=== PATIENT | female | born 1950 | race Caucasian/White ===

== ENCOUNTER → 2016-10-01 | Outpatient (CLI) | payer MEDICARE ==
[~2016-10-01] MED LIST: ASPCH81X PO; METF-384 PO
[2016-10-01 14:47] LABS: ALT/SGPT 15 U/L (12-78); AST/SGOT 14 U/L (15-37); BLOOD UREA NITROGEN 16 mg/dl (7-18); BUN/CREATININE RATIO 20.9 (10-20); CALCIUM 8.8 mg/dl (8.5-10.1); CARBON DIOXIDE 28 mmol/L (21-32); CHLORIDE 105 mmol/L (98-107); CREATININE 0.75 mg/dl (0.60-1.20); GLUCOSE 123 mg/dl (70-99); POTASSIUM 4.3 mmol/L (3.5-5.1); SODIUM 140 mmol/L (136-145)
[2016-10-01 14:58] LABS: ALB/GLOB RATIO 0.9 (0.9-2); ALKALINE PHOSPHATASE 81 U/L (45-117); CHOLESTEROL 229 mg/dl (0-200); CHOLESTEROL/HDL RATIO 3.4; HDL CHOLESTEROL 67 mg/dl; LDL CHOLESTEROL CALCULATED 143 mg/dl; TRIGLYCERIDES 93 mg/dl (0-150); VERY LOW DENSITY LIPOPROT CALC 19 mg/dl
[2016-10-01 15:01] LABS: ESTIMATED AVERAGE GLUCOSE 148 mg/dl; HA1C FLAG Normal (Normal)
--- NOTE | 2016-10-17 09:59 | CODING QUERY MEDICAL NECESSITY ---
CQSUPPORTING DIAGNOSIS NEEDED A supporting diagnosis is required for the test/procedure performed on this patient in order for us to be reimbursed by the patient's insurance. Please provide a supporting diagnosis for the following test/procedure listed below next to the test name along with your signature. *If there is no additional diagnosis for this patient that would support the following test/procedure please document that below next to the test/procedure. Test(s)/Procedure(s) that require a supporting diagnosis: DOS 10/01/16 GLYCATED HEMOGLOBIN TEST Provider Signature: Date: Thank you Leeann Henderson [facility] Information Management Once completed, please kindly fax back to [phone] For questions please call [phone]
== END | disposition home or self-care (01) ==
LOC: C.LABBC 10:10
PROVIDERS: ATTEND Internal Medicine
DX: E55.9 Vitamin D deficiency, unspecified (principal); E11.9 Type 2 diabetes mellitus without complications

== ENCOUNTER → 2017-04-09 | Outpatient (CLI) | payer MEDICARE ==
[2017-04-09 11:24] LABS: CHOLESTEROL/HDL RATIO 3.7
[2017-04-09 12:21] LABS: ESTIMATED AVERAGE GLUCOSE 154 mg/dl; HA1C FLAG Normal (Normal)
== END | disposition home or self-care (01) ==
LOC: C.LABBC 08:56
PROVIDERS: ATTEND Internal Medicine
DX: E11.9 Type 2 diabetes mellitus without complications (principal)

== ENCOUNTER → 2017-07-01 | Outpatient (CLI) | payer MEDICARE | END | disposition home or self-care (01) | LOC: C.LABBC 10:21 | PROVIDERS: ATTEND Internal Medicine | DX: E11.9 Type 2 diabetes mellitus without complications (principal) ==

== ENCOUNTER → 2017-10-10 | Outpatient (CLI) | payer MEDICARE ==
[2017-10-10 11:04] LABS: BASO % 0.4 %; BASO ABS # 0.03 K/uL (0-0.2); EOS % 4.6 %; EOS ABS # 0.35 K/uL (0-0.5); HEMATOCRIT 37.7 % (37-47); HEMOGLOBIN 12.4 g/dL (12.0-16.0); IG# 0.02 K/uL (0.00-0.02); LYMPH % 22.3 %; LYMPH ABS # 1.68 K/uL (1.2-3.4); MEAN CELL VOLUME 87.1 fL (80-100); MEAN CORPUSCULAR HEMOGLOBIN 28.6 pg (25-34); MEAN CORPUSCULAR HGB CONC 32.9 g/dl (32-36); MEAN PLATELET VOLUME 9.8 fL (7.4-10.4); MONO % 5.3 %; NEUT % 67.1 %; NEUT ABS # 5.07 K/uL (1.4-6.5); PLATELET COUNT 373 K/uL (130-400); RED CELL DISTRIBUTION WIDTH CV 13.1 % (11.5-14.5); RED CELL DISTRIBUTION WIDTH SD 42.4 fL (36.4-46.3); WHITE BLOOD COUNT 7.55 K/uL (4.8-10.8)
[2017-10-10 11:30] LABS: ALBUMIN 3.5 gm/dl (3.4-5.0); ALT/SGPT 10 U/L (12-78); AST/SGOT 14 U/L (15-37); BLOOD UREA NITROGEN 11 mg/dl (7-18); CALCIUM 8.9 mg/dl (8.5-10.1); CARBON DIOXIDE 27 mmol/L (21-32); CHOLESTEROL 221 mg/dl (0-200); GLUCOSE 129 mg/dl (70-99); POTASSIUM 3.9 mmol/L (3.5-5.1); SODIUM 135 mmol/L (136-145)
[2017-10-10 11:40] LABS: ALKALINE PHOSPHATASE 89 U/L (45-117); LDL CHOLESTEROL CALCULATED 138 mg/dl; TOTAL PROTEIN 7.3 gm/dl (6.4-8.2)
[2017-10-10 12:54] LABS: HEMOGLOBIN A1C 7.1 % (4.5-5.6)
== END | disposition home or self-care (01) ==
LOC: C.LABBC 08:55
PROVIDERS: ATTEND Internal Medicine
DX: E11.9 Type 2 diabetes mellitus without complications (principal); E78.5 Hyperlipidemia, unspecified; Z87.442 Personal history of urinary calculi; E55.9 Vitamin D deficiency, unspecified

== ENCOUNTER 2024-11-23 22:07 | Inpatient (IN) ==
[2024-11-23 22:37] LABS: Basophils # (auto) 0.08 K/uL (0.00-0.20); Basophils % (auto) 0.4 %; Eosinophils # (auto) 0.04 K/uL (0.00-0.50); Eosinophils % (auto) 0.2 %; Hematocrit (blood only) 36.5 % (37.0-47.0); Hemoglobin 12.2 g/dl (12.0-16.0); Immature Granulocytes # (auto) 0.09 K/uL (0.01-0.20); Immature Granulocytes % (auto) 0.4 %; Lymphocytes # (auto) 1.33 K/uL (1.20-3.40); Mean Corpuscular Hemoglobin 28.4 pg (25.0-34.0); Mean Corpuscular Hgb Conc 33.4 g/dL (32.0-36.0); Mean Corpuscular Volume 84.9 fL (80.0-100.0); Mean Platelet Volume 9.1 fL (9.4-12.4); Monocytes # (auto) 0.74 K/uL (0.11-0.59); Monocytes % (auto) 3.4 %; Neutrophils # (auto) 19.75 K/uL (1.40-6.50); Neutrophils % (auto) 89.6 %; Platelet Count 409 K/uL (130-400); RDW Coefficient of Variation 12.5 % (11.5-14.5); RDW Standard Deviation 38.4 fL (36.4-46.3); White Blood Count 22.03 K/ul (4.8-10.8)
[2024-11-23 22:54] LABS: Albumin Globulin Ratio 1.4 (0.9-2); Albumin Level 4.4 gm/dl (3.4-5.0); BUN Creatinine Ratio 19.4 (10-20); Bilirubin,Total 0.4 mg/dl (0.2-1.0); Calcium 9.4 mg/dl (8.6-10.3); Creatinine Clr Calc Pharmacy 41.5 ml/min; Globulin 3.2 gm/dl (2.5-4.0); Potassium 3.6 mmol/L (3.5-5.1); Total Protein 7.6 gm/dl (6.0-8.3)
[2024-11-23 23:27] LABS: Appearance Urine Cloudy (Clear); Bacteria Urine Automated 4+ (None Seen); Bilirubin Urine Negative (Negative); Blood Urine 1+ (Negative); Cast Urine Automated 0-2 /lpf (0-2); Color Urine Yellow; Epithelial Cell Urine Auto 0-2 /hpf (0-2); Glucose Urine UA 1+ (Negative); Ketones Urine 1+ (Negative); Leukocyte Esterase Urine 3+ (Negative); Nitrite Urine Negative (Negative); Protein Urine 1+ (Negative); RBC Urine Automated >20 /hpf (0-2); Specific Gravity Urine 1.012 (1.000-1.030); Urobilinogen Urine Negative (Negative); WBC Urine Automated >50 /hpf (0-5); pH Urine 6.5 (4.5-7.5)
[2024-11-23 23:50] LABS: Magnesium 1.4 mg/dl (1.7-2.4)
[2024-11-23 23:58] LABS: Troponin I High Sensitivity 7.9 pg/ml (0-14)
--- NOTE | 2024-11-24 00:12 | XRay Report ---
Exam(s): XR CXR 1 VIEW EXAM: XR Chest, 1 View CLINICAL HISTORY: Reason for exam: Sepsis. TECHNIQUE: Frontal view of the chest. COMPARISON: August 22, 2024 FINDINGS: Lungs: Unremarkable. No consolidation. Pleural space: Unremarkable. No pneumothorax. Heart: Unremarkable. No cardiomegaly. Mediastinum: Unremarkable. Normal mediastinal contour. Bones/joints: Mild scoliosis of the thoracic spine, similar to previous. No acute fracture. Upper abdomen: Unremarkable as visualized. No pneumoperitoneum under the diaphragm. IMPRESSION: No acute findings in the chest. Electronically signed by: Sammy Webb MD 11/24/24 00:12 AM
[2024-11-24] MEDS: ONDANSETRON INJ 2 MG/ML 2 ML VIAL ONE (00:22)
[2024-11-24] MEDS: SODIUM CHLORIDE 0.9% 1,000 ML IV ONE (00:22)
[2024-11-24] MEDS: SODIUM CHLORIDE 0.9% 500 ML IV ONE (00:23)
[2024-11-24] MEDS: cefTRIAXone SODIUM 1,000 MG/50 ML BAG IV STA (00:47)
--- NOTE | 2024-11-24 00:47 | History & Physical Report ---
Date of Service November 24, 2024 Assessment & Plan (1) Sepsis: (2) Pyelonephritis of right kidney: (3) Hypomagnesemia: (4) Nausea & vomiting: Plan Patient is a 74-year-old female with past medical history of kidney stones, type II DM, hyperlipidemia, parathyroid tumor. She presented due to right sided flank pain and associated nausea and vomiting that began today. Patient was found to have a positive UA along with meeting SIRS criteria due to white count of 22.3 and heart rate of 124. She is being admitted for IV antibiotics for sepsis and pyelonephritis. #Sepsis/pyelonephritis - Patient with right flank pain and UA appears infectious with 3+ LE, >50 WBC, 4+ bacteria. Renal function stable. + SIRS: WBC 22.03 with neutrophil predominance, tachycardic 124 - procalcitonin negative - Lactate 2.5; will finish fluid bolus and order 2 hour repeat - Sepsis fluid bolus for ideal body weight = 1.5L; given 1.5L NSS in ED - Continue fluid resuscitation with plasmalyte @ 125 ml/hr x2L - continue Rocephin - Previous cultures have grown E. coli sensitive to Rocephin (resistant to quinolones and ampicillin) - Pain control with IV Tylenol prn, morphine 2/4 Mg IV for breakthrough pain - follow urine and blood cultures - Trend CBC - AP CT ordered as nephrolithiasis remains in differential #Hypomagnesemia mag 1.4, K+ 3.6. Suspect 2/2 depletion with vomiting. - 2G IV magnesium ordered - Trend BMP and mag #Nausea and vomiting - 2/2 infection above - Zofran as needed - Clear liquid diet, advance as tolerated - Hold nonessential p.o. medications #T2DM - Most recent A1C 7.3%. - hold Metformin with n/v - loose SSI ordered VTE ppx: SCDs, low risk and defer chemical ppx until AP CT resulted (may require surgical management if nephrolithiasis) Dispo: PCU Admission and Anticipated Discharge Date Admission Date: 11/24/24 History of Present Illness Chief Complaint: flank pain Primary Care Provider: Becka Pierre PA-C Patient is a 74-year-old female with past medical history of kidney stones, type II DM, hyperlipidemia, parathyroid tumor. She presented due to right sided flank pain and associated nausea and vomiting that began yesterday. Patient was found to have a positive UA along with meeting SIRS criteria due to white count of 22.3 and heart rate of 124. She is being admitted for IV antibiotics for sepsis and pyelonephritis. Patient seen at bedside. She is tired and laying with her eyes closed. She stated that last evening she developed right flank pain that has been worsening since. She also developed nausea and vomiting this morning vomiting approximately 3 times, she denies any hematemesis. She stated the pain radiates from front to back however denies any radiation into her groin. She stated she does have a history of kidney stones, having multiple stones in the however has not had a stone since having her parathyroid removed. She denies any symptoms of cystitis, denies dysuria, hematuria, increase in urinary frequency, increased urinary urgency, difficulty urinating. She has been unable to eat or drink much this evening due to the vomiting with nausea. She does endorse chills this afternoon however improved. She stated she does not get frequent UTIs. She denies any chest pain or shortness of breath. She denies nicotine or alcohol use. She does not use oxygen at baseline. She did not get any of her home medications today due to feeling nauseous. She wishes to be DNR/DNI. Allergies Allergy/AdvReac Type Severity Reaction Status Date / Time cat dander Allergy Intermediate ITCHING Verified 10/16/24 09:24 Penicillins Allergy Intermediate RASH Verified 10/16/24 09:24 doxycycline AdvReac Intermediate vomiting, Verified 10/16/24 09:24 weakness empagliflozin AdvReac Verified 10/16/24 09:24 [From Jardiance] Januiva AdvReac Uncoded 10/16/24 09:24 Home Medications Medication Instructions Recorded Confirmed Type calcium 500 mg-vitamin D3 100 1 tab PO DAILY 02/05/23 11/24/24 History unit-vitamin K 40 mcg chewable tablet rosuvastatin 10 mg tablet 10 mg PO Q OTHER DAY #45 tabs 07/02/23 11/24/24 Rx albuterol sulfate 90 mcg/actuation 2 inha inhalation QID PRN 08/22/24 11/24/24 Rx aerosol inhaler shortness of breath or wheezing #1 inhaler sodium chloride 0.65 % nasal spray 2 spray intranasal QID PRN dry 03/28/25 05/06/25 Rx aerosol ([place] Saline) nasal passages #50 mL metformin 500 mg tablet,extended 1,000 mg PO BID 11/24/24 11/24/24 History release 24 hr Past Med/Surg History Problem List (Updated 11/24/24 @ 01:20 by Shivani Reynolds PA-C) Nausea & vomiting Hypomagnesemia Pyelonephritis of right kidney Sepsis Anterior epistaxis Staph skin infection Type 2 diabetes mellitus with microalbuminuria Osteoporosis Multinodular thyroid Anxiety, generalized (~10/16/24) Thyromegaly Tinnitus Acute dysfunction of both eustachian tubes Hyperlipidemia (Acute) Prolapsed bladder (Acute) Vitamin D deficiency (Acute) Medical History History of cataract History of kidney stones Surgical History History of lithotripsy History of parathyroid surgery History of throat surgery History of wisdom tooth extraction Family History Father Diabetes Glaucoma Prostate cancer Macular degeneration Aunt Colorectal cancer Sister Diabetes Gallbladder disease Other No family history of bleeding disorder Denies family history of Ovarian cancer Myocardial infarction Breast cancer Lung cancer Stroke Social History Smoking Status: Never smoker Tobacco Type: Cigarettes Second Hand Exposure: No; Do You Dip or Chew Tobacco: No; Hx Alcohol Use: Yes Alcohol type: hard liquor Alcohol Intake Frequency: Monthly or Less Hx Substance Use: No Preferred Language: Occitan Communication Ability: Effective Visual Impairment: Limited Hearing Ability: Normal Director [place] Required: No Beliefs That Will Affect Care: None marital status: / Current Living Situation: Alone Current Living Situation Comment: 1 dog current occupational status: retired How many Children do You have: 1 Feels Safe at Home: Yes Childhood Exposure to Second-Hand Smoke: Yes Diet: diabetic caffeine: Yes Dental Care, Regularly: Yes Physical Activity Frequency: Daily Physical Activity Frequency Comment: Tries to walk Seatbelt Use: always Sunscreen Use: Yes Assistive Devices: Glasses Review of Systems Review of Systems: See HPI Physical Exam Physical Exam: The patient is tired, alert and oriented 3, well developed and well nourished, normocephalic and atraumatic, in no acute distress. Non-toxic appearing. HEENT- EOMI, mucous membranes dry. Hearing grossly intact. Heart-normal S1 and S2. No murmurs, rubs or gallops. Lungs-clear bilaterally, no respiratory distress, no accessory muscle use. Abdomen-normal bowel sounds and soft. No ascites noted. Tender to palpation of right upper and lower quadrant. No CVA tenderness. Extremities- no clubbing, cyanosis, or edema. Rheumatologic-normal range of motion. Results & Data Results & Data Vital Signs (Past 12 Hours) Vital Signs Temp Pulse Pulse Resp BP BP Pulse Ox 11/24/24 00:03 36.9 C 11/23/24 23:52 124 H 23 96 11/23/24 23:48 120 H 32 H 176/96 H 95 11/23/24 23:45 121 H 32 H 96 11/23/24 23:44 188/100 H 11/23/24 23:30 121 H 39 H 96 11/23/24 23:21 125 H 21 11/23/24 23:00 115 H 20 96 11/23/24 22:42 112 H 29 H 90 11/23/24 22:40 109 H 11/23/24 22:10 36.6 C 113 H 18 183/98 H 100 O2 Del Method 11/24/24 00:03 11/23/24 23:52 11/23/24 23:48 Room Air 11/23/24 23:45 11/23/24 23:44 11/23/24 23:30 11/23/24 23:21 11/23/24 23:00 11/23/24 22:42 11/23/24 22:40 11/23/24 22:10 Room Air Laboratory Results reviewed CBC, CMP, magnesium, lactate, troponin, procalcitonin, UA Diagnostic Findings reviewed CXR Medications Administered ED1.5 mL NSS bolus, Rocephin 1G IV, Zofran ECG Additional Comments: sinus tachycardia with PACs Rate 125 QTc 441 Code Status & VTE Plan VTE Prophylaxis Plan VTE Prophylaxis will be ordered: Yes Supervising Physician Co-Signing Physician Notes I personally saw and examined the patient. I independently reviewed the labs, EKG, imaging, problem list, medication list, past medical history and family history. I verified all reeder points and agree with Shivani Reynolds PA-C with the following exceptions and/or additions: 74 year old female presents to the ER with sudden onset right flank and abdominal pain. No dysuria or measured fever. Pain feels like her previous stones although not had any for many years since parathyroid gland removed. O/E HS increased rate, regular rhythm, no murmurs, Chest CTAB, Abdo right sided pain without guarding or rebound tenderness, severe right CVA tenderness. A/P Sepsis/pyelonephritis - concerning history for stone given sudden onset, lack of fever, normal procalcitonin, history of stones feeling similar in the past, lack of urinary symptoms prior pain recommend CT A/P without contrast to assess for ureterolithiasis. No history of drug resistant organisms known. IV ceftriaxone, NPO until CT resulted, IV fluids (does not meet criteria for spesis fluid bolus) PG Care Time/CCT Total # of Minutes Spent Total Time Spent with Patient: Total time spent is greater than 50% in coordination of care (as documented) at patient's floor/unit and/or counseling patient: Coding Level of Care Code 35294 INT INP/OBS CARE 3/75MIN Diagnoses Sepsis A41.9 Pyelonephritis of right kidney N12 Hypomagnesemia E83.42 Nausea & vomiting R11.2
[2024-11-24] MEDS: ACETAMINOPHEN 1,000 MG/100 ML VIAL IV STA (01:40)
[2024-11-24] MEDS ORDERED: MELATONIN 3 MG TAB PO PRN (02:00)
[2024-11-24] MEDS ORDERED: ALBUTEROL HFA 8 GM INHALER INH PRN (02:00)
[2024-11-24] MEDS ORDERED: DOCUSATE SODIUM 100 MG CAP PO PRN (02:00)
[2024-11-24] MEDS ORDERED: SODIUM CHLORIDE 0.65% NA SOLN 45 ML (OCEAN) PRN (02:00)
[2024-11-24] MEDS ORDERED: MoRPHine SULFATE 2 MG/ML CARP IV PRN (02:00)
[2024-11-24] MEDS: ONDANSETRON INJ 2 MG/ML 2 ML VIAL IV STA (02:02)
[2024-11-24] MEDS: MAGNESIUM SULFATE / D5W 1 GM/100 ML BAG IV SCH (02:06)
[2024-11-24] MEDS ORDERED: GLUCAGON FOR INJ 1 MG VIAL SQ PRN (02:25)
[2024-11-24] MEDS ORDERED: GLUCOSE 10 TAB/TUBE PO PRN (02:25)
[2024-11-24] MEDS ORDERED: CARBOHYDRATES FOR HYPOGLYCEMIA PO PRN (02:25)
[2024-11-24] MEDS ORDERED: GLUCOSE 40% GEL 15 GM TUBE PO PRN (02:25)
[2024-11-24] MEDS ORDERED: DEXTROSE 50% 50 ML SYRINGE IV PRN (02:25)
[2024-11-24] MEDS: MoRPHine SULFATE 4 MG/ML 1 ML CARP\\VIAL IV PRN (03:40)
[2024-11-24] MEDS: PLASMA-LYTE A 1,000 ML IV SCH (03:41)
[2024-11-24] MEDS: ONDANSETRON INJ 2 MG/ML 2 ML VIAL IV PRN (03:43)
[2024-11-24 05:43] LABS: Hemoglobin 11.1 g/dl (12.0-16.0); Mean Corpuscular Hgb Conc 32.6 g/dL (32.0-36.0); Mean Corpuscular Volume 85.9 fL (80.0-100.0); Mean Platelet Volume 8.9 fL (9.4-12.4); Platelet Count 286 K/uL (130-400); RDW Coefficient of Variation 12.4 % (11.5-14.5); RDW Standard Deviation 39.1 fL (36.4-46.3); Red Blood Count 3.96 M/uL (4.20-5.40); White Blood Count 20.31 K/ul (4.8-10.8)
--- NOTE | 2024-11-24 05:56 | CT Scan Report ---
EXAM: CT abd pelvis wo con CLINICAL HISTORY: right flank pain ?stone TECHNIQUE: Contiguous axial images were obtained from the level of the diaphragm to the pubic symphysis without intravenous or oral contrast. Coronal and sagittal reconstructions were likewise performed and indicated to increase the sensitivity for detecting clinically relevant pathology. CT scan was performed according to ALARA (as low as reasonable achievable). COMPARISON: None FINDINGS: The visualized lung bases are clear. Evaluation of the abdominal and pelvic visceral organs is limited without intravenous contrast. The unenhanced liver, spleen, pancreas, and adrenal glands are grossly unremarkable. The gallbladder is present. Right Kidney: Enlarged in size measuring 11 x 7.7 cm. Evidence of 16 x 11 mm radiodense ( 1324 to 1707 HU) calculus noted at right pelviureteric junction with moderate hydronephrosis. Evidence of exophytic hypodense lesion with coarse calcifications noted at lower pole of right kidney measuring 64 x 63 x 53 mm ( CC x AP x TR) - could represent cyst. Severe perinephric fat stranding noted. There is evidence of fat stranding in the retroperitoneum along the anterior aspect of abdominal aorta and right common iliac artery. There is mild dilatation of the right ureter throughout its course with mild periureteric fat stranding, however, no evidence of radiodense calculus within. Left Kidney: Measures 10 x 5.8 cm. Mild perinephric fat stranding is seen. There is no hydronephrosis. No evidence of calcification. Left ureter is normal in caliber. No fluid collections are seen. Evidence of colonic diverticuli with no evidence of diverticulitis. No evidence of focal or diffuse bowel wall thickening or evidence of bowel obstruction is seen. The appendix is visualized in the right lower quadrant and appears within normal limits. The aorta is normal in caliber. The urinary bladder is normal in contour. Uterus is normal in size with evidence of myometrial calcification. Evidence of hypodense lesion measuring 30 x 23 mm in right ovary- likely cyst. Left ovary appears normal. 17.6 mm defect at umbilicus through which fat is seen herniating content. No aggressive appearing osseous lesions are identified. Degenerative changes noted in lumbosacral spine with spondylosis changes with curvature towards left side. IMPRESSION: Obstructive right pelviureteric junction calculus with moderate hydronephrosis and enlarged right kidney with severe perinephric fat stranding. Exophytic hypodense lesion with coarse calcifications at lower pole of right kidney - likely cyst - suggest ultrasound correlation Hypodense lesion in right ovary - likely cyst - suggest ultrasound correlation Evidence of umbilical hernia with omentum as herniating content. Spondylar degenerative changes in lumbosacral spine Electronically signed by Orlando Remy 11-24-2024 05:55 AM
[2024-11-24 05:59] LABS: Creatinine Clr Calc Pharmacy 40.4 ml/min; Magnesium 1.7 mg/dl (1.7-2.4); Potassium 3.6 mmol/L (3.5-5.1)
--- NOTE | 2024-11-24 06:01 | Communication Note ---
Date of Service: November 24, [address] resulted confirming right obstructed nephrolithiasis with moderate hydronephrosis. Will maintain NPO status and continue IVF. Urology consulted; anticipate surgical management given sepsis.
[2024-11-24 06:11] LABS: Basophils # (auto) 0.05 K/uL (0.00-0.20); Basophils % (auto) 0.2 %; Immature Granulocytes # (auto) 0.16 K/uL (0.01-0.20); Immature Granulocytes % (auto) 0.8 %; Lymphocytes # (auto) 0.36 K/uL (1.20-3.40); Lymphocytes % (auto) 1.8 %; Monocytes # (auto) 0.21 K/uL (0.11-0.59); Neutrophils # (auto) 19.53 K/uL (1.40-6.50); Neutrophils % (auto) 96.2 %; Ovalocytes 1+
[2024-11-24] MEDS: INSULIN ASPART PER UNIT CHARGE SC SCH (07:46)
--- NOTE | 2024-11-24 07:57 | Urology Consultation ---
Date of Consultation November 24, 2024 Assessment & Plan (1) Calculus of proximal right ureter: Recommend cystoscopy and right stent placement given obstructing stone and concern for infection Keep n.p.o. for procedure Discussed her large right UPJ stone, hydronephrosis, infection Also discussed her complex cystic structure h adjacent to the kidney She has a prior history of ESWL with a bleed and this calcified mass developed after that and is believed to be directly resulting from it rather than from a m alignancy Regardless, we will address this in the future and not today Discussed cystoscopy and right ureteral stent placement followed by outpatient follow-up for ureteroscopy and laser lithotripsy She has very understanding She is accompanied by her son today and she is in agreement with moving forward with the procedure Sophie Olmos began this consult and I completed with the evaluation and personal physical exam History of Present Illness Attending Physician: Saadia Smith MD History of Present Illness This is a 74-year-old female with history of nephrolithiasis who presented for evaluation of right-sided flank pain with associated nausea and vomiting. Urinalysis was suspicious for infection and she met SIRS criteria due to leukocytosis of 22.3 and tachycardia. She was admitted to the hospital medicine service for sepsis and pyelonephritis. Workup included CT abdomen pelvis which showed moderate right hydronephrosis secondary to an obstructing 16 x 11 mm calculus noted at the UPJ with perinephric stranding noted. There is also an exophytic hypodense lesion with calcifications of the lower pole of the right kidney. Urology is consulted for obstructing stone and concern for infection. Patient seen and examined at bedside. She is resting in bed, arouses to her name. She is comfortable at present. Reports right flank pain, nausea and vomiting prior to arrival. Symptoms are improved at present. Denies dysuria or hematuria. No fever or chills at present. She is NPO. She reports history of in the 90s. She has previously passed stone spontaneously as well as history of shockwave lithotripsy. She reports she was told by her previous urologist that her kidney was damaged by prior lithotripsy. Allergies Allergy/AdvReac Type Severity Reaction Status Date / Time cat dander Allergy Intermediate ITCHING Verified 11/24/24 10:25 Penicillins Allergy Intermediate RASH Verified 11/24/24 10:25 doxycycline AdvReac Intermediate vomiting, Verified 11/24/24 10:25 weakness sitagliptin [From Januvia] AdvReac Intermediate hair loss Verified 11/24/24 10:25 empagliflozin AdvReac anger Verified 11/24/24 10:25 [From Jardiance] Home Medications Medication Instructions Recorded Confirmed Type calcium 500 mg-vitamin D3 100 1 tab PO DAILY 02/05/23 11/24/24 History unit-vitamin K 40 mcg chewable tablet rosuvastatin 10 mg tablet 10 mg PO Q OTHER DAY #45 tabs 07/02/23 11/24/24 Rx albuterol sulfate 90 mcg/actuation 2 inha inhalation QID PRN 08/22/24 11/24/24 Rx aerosol inhaler shortness of breath or wheezing #1 inhaler sodium chloride 0.65 % nasal spray 2 spray intranasal QID PRN dry 10/16/24 11/24/24 Rx aerosol ([place] Saline) nasal passages #50 mL metformin 500 mg tablet,extended 1,000 mg PO BID 11/24/24 11/24/24 History release 24 hr Patient History Medical History History of cataract History of kidney stones Surgical History History of lithotripsy History of parathyroid surgery History of throat surgery History of wisdom tooth extraction Family History Father Diabetes Glaucoma Prostate cancer Macular degeneration Aunt Colorectal cancer Sister Diabetes Gallbladder disease Other No family history of bleeding disorder Denies family history of Ovarian cancer Myocardial infarction Breast cancer Lung cancer Stroke Social History Smoking Status: Never smoker Tobacco Type: Cigarettes Second Hand Exposure: No; Do You Dip or Chew Tobacco: No; Hx Alcohol Use: Yes Alcohol type: hard liquor Alcohol Intake Frequency: Monthly or Less Hx Substance Use: No Preferred Language: Nauruan Communication Ability: Effective Visual Impairment: Limited Hearing Ability: Normal Night Custodian Required: No Beliefs That Will Affect Care: None marital status: / Current Living Situation: Alone Current Living Situation Comment: 1 dog current occupational status: retired How many Children do You have: 1 Feels Safe at Home: Yes Childhood Exposure to Second-Hand Smoke: Yes Diet: diabetic caffeine: Yes Dental Care, Regularly: Yes Physical Activity Frequency: Daily Physical Activity Frequency Comment: Tries to walk Seatbelt Use: always Sunscreen Use: Yes Assistive Devices: Glasses Physical Exam Constitutional: well developed and well nourished Respiratory: no respiratory distress Cardiovascular: Extremities: no pedal edema Gastrointestinal (Abdomen): Inspection/Auscultation: abdomen normal to inspection Results & Data Vital Signs (Past 12 Hours) Vital Signs Temp Pulse Pulse Resp BP BP Pulse Ox 11/24/24 04:00 107 H 11/24/24 03:05 36.9 C 106 H 20 146/76 H 94 11/24/24 03:00 94 11/24/24 01:52 111 H 30 H 173/89 H 92 11/24/24 01:48 113 H 30 H 173/89 H 94 11/24/24 01:25 115 H 30 H 164/99 H 94 11/24/24 00:03 36.9 C 11/23/24 23:52 124 H 23 96 11/23/24 23:48 120 H 32 H 176/96 H 95 11/23/24 23:45 121 H 32 H 96 11/23/24 23:44 188/100 H 11/23/24 23:30 121 H 39 H 96 11/23/24 23:21 125 H 21 11/23/24 23:00 115 H 20 96 11/23/24 22:42 112 H 29 H 90 11/23/24 22:40 109 H 11/23/24 22:10 36.6 C 113 H 18 183/98 H 100 O2 Del Method 11/24/24 04:00 11/24/24 03:05 Room Air 11/24/24 03:00 Room Air 11/24/24 01:52 Room Air 11/24/24 01:48 Room Air 11/24/24 01:25 Room Air 11/24/24 00:03 11/23/24 23:52 11/23/24 23:48 Room Air 11/23/24 23:45 11/23/24 23:44 11/23/24 23:30 11/23/24 23:21 11/23/24 23:00 11/23/24 22:42 11/23/24 22:40 11/23/24 22:10 Room Air PG Care Time/CCT Total # of Minutes Spent Total Time Spent with Patient: Total time spent is greater than 50% in coordination of care (as documented) at patient's floor/unit and/or counseling patient: Coding Level of Care Code 39124 IN/OBS CONSULT LVL 3,45M Diagnoses Calculus of proximal right ureter N20.1
[2024-11-24] MEDS ORDERED: metFORMIN HCL ER 500 MG TABCR PO SCH (09:00)
[2024-11-24] MEDS ORDERED: LIDOCAINE 2% 2 ML VIAL/AMP(20MG/ML) INFIL ONE (09:30)
[2024-11-24] MEDS ORDERED: PROPOFOL IV EMULSION 10 MG/ML 20 ML VIAL IV ONE (09:30)
[2024-11-24] MEDS ORDERED: fentaNYL citrate PF 100 MCG/2 ML VIAL ONE (09:31)
[2024-11-24] MEDS ORDERED: ONDANSETRON INJ 2 MG/ML 2 ML VIAL ONE (09:32)
[2024-11-24] MEDS: LACTATED RINGER'S 1,000 ML IV SCH (10:24)
--- NOTE | 2024-11-24 10:30 | Anesthesiology Consultation ---
Date of Service November 24, 2024 Assessment & Plan Chart Review Chart Review: Acceptable Risk for Surgery Consults Requested none History Surgery Operation Date: 11/24/24 07:00 Proposed Procedures p Cystoscopy Right Stent Placement - Piyush Bo MD Height/Weight Height: 5 ft 2 in Weight: 66.4 kg Allergies Allergy/AdvReac Type Severity Reaction Status Date / Time cat dander Allergy Intermediate ITCHING Verified 11/24/24 10:25 Penicillins Allergy Intermediate RASH Verified 11/24/24 10:25 doxycycline AdvReac Intermediate vomiting, Verified 11/24/24 10:25 weakness sitagliptin [From Januvia] AdvReac Intermediate hair loss Verified 11/24/24 10:25 empagliflozin AdvReac anger Verified 11/24/24 10:25 [From Jardiance] Medications Home Medications Medication Instructions Recorded Confirmed Last Taken calcium 500 mg-vitamin D3 100 1 tab PO DAILY 02/05/23 11/24/24 Unknown unit-vitamin K 40 mcg chewable tablet rosuvastatin 10 mg tablet 10 mg PO Q OTHER DAY #45 tabs 07/02/23 11/24/24 Unknown albuterol sulfate 90 mcg/actuation 2 inha inhalation QID PRN 08/22/24 11/24/24 Unknown aerosol inhaler shortness of breath or wheezing #1 inhaler sodium chloride 0.65 % nasal spray 2 spray intranasal QID PRN dry 10/16/24 11/24/24 Unknown aerosol ([place] Saline) nasal passages #50 mL metformin 500 mg tablet,extended 1,000 mg PO BID 11/24/24 11/24/24 Unknown release 24 hr Active Medications Generic Name Dose Route Start Last Admin Trade Name Fifi PRN Reason Stop Dose Admin Parenteral Electrolytes 1,000 mls @ 125 mls/hr 11/24/24 01:15 11/24/24 10:08 Plasma-Lyte A Ph 7.4 IV 11/24/24 17:14 0 mls/hr .Q8H [facility] Infusion Lactated Ringer's 1,000 mls @ 15 mls/hr 11/24/24 10:30 11/24/24 10:24 Lr IV 11/27/24 10:29 15 mls/hr .Q24H [facility] Administration Insulin Aspart 0 units 11/24/24 07:30 11/24/24 07:46 Insulin Aspart Per Unit Charge SC 12/24/24 07:29 3 units ACHS [facility] Administration Morphine Sulfate 4 mg 11/24/24 02:00 11/24/24 03:40 Morphine Sulfate 4 Mg/Ml 1 Ml Carp\Vial IV 12/08/24 01:59 4 mg Q6H PRN Administration Severe Pain (Scale 7, 8, 9,10) Ondansetron HCl 4 mg 11/24/24 02:00 11/24/24 03:43 Ondansetron Inj 2 Mg/Ml 2 Ml Vial IV 12/24/24 01:59 4 mg Q6H PRN Administration Nausea And Vomiting NPO Date Last Intake of Fluids: 11/23/24 Time Last Intake of Fluids: 23:59 Date Last Intake of Solids: 11/23/24 Time Last Intake of Solids: 16:00 Past Medical History Medical History History of cataract History of kidney stones Past Family History Family History Father Diabetes Glaucoma Prostate cancer Macular degeneration Aunt Colorectal cancer Sister Diabetes Gallbladder disease Other No family history of bleeding disorder Denies family history of Ovarian cancer Myocardial infarction Breast cancer Lung cancer Stroke Past Surgical History Surgical History History of lithotripsy History of parathyroid surgery History of throat surgery History of wisdom tooth extraction Social History Smoking Status: Never smoker Do You Dip or Chew Tobacco: No Hx Alcohol Use: Yes Alcohol type: hard liquor Hx Substance Use: No Physical Exam Vital Signs Last Vital Signs Temp 36.5 C 11/24/24 10:20 Pulse 96 H 11/24/24 10:20 Resp 20 11/24/24 10:20 BP 114/62 11/24/24 10:20 Pulse Ox 93 11/24/24 10:20 O2 Del Method Room Air 11/24/24 10:20 Testing Laboratory Results 11/24/24 05:25 11/24/24 05: Urine Color Yellow 11/23/24 22:21 Urine Appearance Cloudy (Clear) A 11/23/24 22:21 Urine pH 6.5 (4.5-7.5) 11/23/24 22:21 Ur Specific [place] 1.012 (1.000-1.030) 11/23/24 22:21 Urine Protein 1+ (Negative) H 11/23/24 22:21 Urine Glucose (UA) 1+ (Negative) H 11/23/24 22:21 Urine Ketones 1+ (Negative) H 11/23/24 22:21 Urine Nitrite Negative (Negative) 11/23/24 22:21 Ur Leukocyte Esterase 3+ (Negative) H 11/23/24 22:21 Urine WBC (Auto) >50 /hpf (0-5) H 11/23/24 22:21 Urine RBC (Auto) >20 /hpf (0-2) H 11/23/24 22:21 U Hyaline Cast (Auto) 0-2 /lpf (0-2) 11/23/24 22:21 U Epithel Cells (Auto) 0-2 /hpf (0-2) 11/23/24 22:21 Urine Bacteria (Auto) 4+ (None Seen) H 11/23/24 22:21 11/24/24 11/24/24 10:20 07:41 POC Glucose 210 H 263 H
[2024-11-24] MEDS ORDERED: ATROPINE SULFATE 0.1 MG/ML 10ML SYR IV PRN (10:32)
[2024-11-24] MEDS ORDERED: PROMETHAZINE HCL 6.25 MG in SODIUM CHLORIDE 0.9% 50 ML IV PRN (10:32)
[2024-11-24] MEDS ORDERED: ePHEDrine sulfate 50 MG/ML AMP IV PRN (10:32)
[2024-11-24] MEDS ORDERED: ONDANSETRON INJ 2 MG/ML 2 ML VIAL IV PRN (10:32)
[2024-11-24] MEDS ORDERED: HYDROmorphone INJ 2 MG/ML SYR/VIAL IV PRN (10:32)
[2024-11-24] MEDS ORDERED: fentaNYL citrate PF 100 MCG/2 ML VIAL IV PRN (10:32)
--- NOTE | 2024-11-24 11:26 | Operative Report ---
[facility] Post Operative Report Pre & Post Diagnosis Operation Date: 11/24/24 07:00 Pre-Op Diagnosis: Pyelonephritis, Calculus of proximal right ureter Post-Op Diagnosis: Pyelonephritis, Calculus of proximal right ureter I identified the patient and participated in the time-out.: Yes Procedure Operation Date: 11/24/24 07:00 Actual Procedures p Cystoscopy Right Stent Placement(Right) - Piysuh Bo MD Surgeon Piyush Bo MD Team Psychologist none Estimated Blood Loss 0 Findings Consistent with Post-Op Diagnosis Specimens none Description of Procedure The patient was identified in the preoperative holding area, appropriate informed consents were reviewed and completed and the patient was transferred to the operative suite. Upon arrival, appropriate antibiotics and anesthesia were administered and the patient was placed in dorsal lithotomy position and prepped and draped in sterile fashion. Before beginning the case I performed visual inspection she has a very notable vaginal prolapse with predominantly anterior and apical prolapse but also some posterior component. I reduced the prolapse and packed her vagina with Ray- Mary's to allow easy access to the urethra. Full inspection of the bladder was then conducted. She was filled with purulent urine which was irrigated free. I was then able to identify the ureteral orifices in orthotopic position and I was able to intubate the right UO with a sensor wire which advanced the kidney without difficulty. There is a notable fluoroscopic density at the level of the UPJ consistent with the stone seen on preoperative imaging. The wire was able to advance beyond it. I then initially placed a 6 [place] by 24 cm double-J stent. There was good curl above the stone on initial placement once I removed the vaginal packing the loop slipped below the stone. In turn I returned to the bladder and grasped the distal aspect of the stent and exchanged it for 6 [place] by 22-32 cm stent. Curl in the second stent was much better and I felt confident was located in the area that was decompressing the kidney. There was Curl in the bladder as well. I then decompressed the bladder and concluded the case. There were no complications. She was reversed of anesthesia and taken to the recovery room in stable condition. I attest to the content of the Intraoperative Record and any orders documented therein. Any exceptions are noted below.
--- NOTE | 2024-11-24 11:58 | Anesthesiology Progress Note ---
Date of Service November 24, 2024 Anesthesia Post Procedure Vital Signs Vital Signs: Temp Pulse Pulse Resp BP BP Pulse Ox 11/24/24 11:45 36.5 C 88 20 100/54 L 95 11/24/24 11:35 87 17 107/60 100 11/24/24 11:26 37.2 C 85 13 89/58 L 99 11/24/24 10:20 36.5 C 96 H 20 114/62 93 11/24/24 08:00 102 H 11/24/24 08:00 36.7 C 114 H 18 138/77 98 11/24/24 04:00 107 H 11/24/24 03:05 36.9 C 106 H 20 146/76 H 94 11/24/24 03:00 94 11/24/24 01:52 111 H 30 H 173/89 H 92 11/24/24 01:48 113 H 30 H 173/89 H 94 11/24/24 01:25 115 H 30 H 164/99 H 94 11/24/24 00:03 36.9 C 11/23/24 23:52 124 H 23 96 11/23/24 23:48 120 H 32 H 176/96 H 95 11/23/24 23:45 121 H 32 H 96 11/23/24 23:44 188/100 H 11/23/24 23:30 121 H 39 H 96 11/23/24 23:21 125 H 21 11/23/24 23:00 115 H 20 96 11/23/24 22:42 112 H 29 H 90 11/23/24 22:40 109 H 11/23/24 22:10 36.6 C 113 H 18 183/98 H 100 O2 Del Method O2 Flow Rate 11/24/24 11:45 Room Air 11/24/24 11:35 Oxymask 4 11/24/24 11:26 Oxymask 4 11/24/24 10:20 Room Air 11/24/24 08:00 11/24/24 08:00 Room Air 11/24/24 04:00 11/24/24 03:05 Room Air 11/24/24 03:00 Room Air 11/24/24 01:52 Room Air 11/24/24 01:48 Room Air 11/24/24 01:25 Room Air 11/24/24 00:03 11/23/24 23:52 11/23/24 23:48 Room Air 11/23/24 23:45 11/23/24 23:44 11/23/24 23:30 11/23/24 23:21 11/23/24 23:00 11/23/24 22:42 11/23/24 22:40 11/23/24 22:10 Room Air Pain Intensity Right Flank: Pain Intensity: 9 Transfer of Care Handoff Completed per policy Notes Mental Status: alert / awake / arousable and participated in evaluation Patient Amnestic to Procedure: Yes Nausea / Vomiting: adequately controlled Pain: adequately controlled Airway Patency, RR, SpO2: stable & adequate BP & HR: stable & adequate Hydration State: stable & adequate Anesthetic Complications: no major complications apparent
--- NOTE | 2024-11-24 12:08 | Fluoroscopy Report ---
FL KUB CLINICAL HISTORY: Stent COMPARISON STUDY: None FLUOROSCOPY TIME: 17 seconds FLUOROSCOPY IMAGES: 6 EXPOSURE DOSE: 4 mGy FINDINGS: Fluoroscopy was provided for urologic procedure. IMPRESSION: Intraoperative fluoroscopy. ACT 112: Negative or not required by law. Electronically signed by: Juwan Fernando M.D. 11/24/2024 12:06 PM
[2024-11-24 12:18] LABS: A calco-baum cmplx NotReported Not Detected (NotDetected); Bact fragilis Not Reported Not Detected (NotDetected); Blood Culture Id Panel See PCR Comment (NotDetected); C auris Not Reported Not Detected (NotDetected); CTX-M Resistant Gene Not Detected (NotDetected); Calbicans Not Reported Not Detected (NotDetected); Candida glabrata Not Reported Not Detected (NotDetected); Candida krusei Not Reported Not Detected (NotDetected); Cneoformans/gatti Not Reported Not Detected (NotDetected); Cparapsilosis Not Reported Not Detected (NotDetected); Ctropicalis Not Reported Not Detected (NotDetected); E cloacae compx Not Reported Not Detected (NotDetected); Efaecalis Not Reported Not Detected (NotDetected); Efaecium Not Reported Not Detected (NotDetected); Enterobacterales Not Reported DETECTED (NotDetected); Escherichia coli Not Reported DETECTED (NotDetected); H influenzae Not Reported Not Detected (NotDetected); IMP Resistant Gene Not Detected (NotDetected); K aerogenes Not Reported Not Detected (NotDetected); KPC Resistant Gene Not Detected (NotDetected); Koxytoca Not Reported Not Detected (NotDetected); Kpneumoniae grp Not Reported Not Detected (NotDetected); Lmonocyt Not Reported Not Detected (NotDetected); N meningitidis Not Reported Not Detected (NotDetected); NDM Resistant Gene Not Detected (NotDetected); OXA 48 Like Resistant Gene Not Detected (NotDetected); P aeruginosa Not Reported Not Detected (NotDetected); Proteus spp Not Reported Not Detected (NotDetected); Salmonella spp Not Reported Not Detected (NotDetected); Staph lugdunensis Not Reported Not Detected (NotDetected); Staph spp. Not Reported Not Detected (NotDetected); Staphaureus Not Reported Not Detected (NotDetected); Staphepi Not Reported Not Detected (NotDetected); Stenmaltophilia Not Reported Not Detected (NotDetected); Strep agal(GrpB) Not Reported Not Detected (NotDetected); Strep pneum Not Reported Not Detected (NotDetected); Strep pyog (GrpA) Not Reported Not Detected (NotDetected); Strep spp Not Reported Not Detected (NotDetected); VIM Resistant Gene Not Detected (NotDetected); mcr-1 Colistin Resistant Gene Not Detected (NotDetected)
[2024-11-24 12:52] LABS: Enterobacterales DETECTED (NotDetected)
[2024-11-24] MEDS: CEFEPIME 2000MG 2,000 MG/20 ML SYR IV SCH (18:13)
[2024-11-24] MEDS: ACETAMINOPHEN 1,000 MG/100 ML VIAL IV PRN (22:30)
[2024-11-25] MEDS ORDERED: cefTRIAXone SODIUM 1,000 MG/50 ML BAG IV SCH
[2024-11-25 06:47] LABS: Hematocrit (blood only) 32.1 % (37.0-47.0); Hemoglobin 10.6 g/dl (12.0-16.0); Mean Corpuscular Hemoglobin 28.6 pg (25.0-34.0); Mean Corpuscular Volume 86.8 fL (80.0-100.0); Mean Platelet Volume 9.5 fL (9.4-12.4); Platelet Count 230 K/uL (130-400); RDW Coefficient of Variation 12.9 % (11.5-14.5); RDW Standard Deviation 40.8 fL (36.4-46.3); White Blood Count 15.17 K/ul (4.8-10.8)
[2024-11-25 07:15] LABS: Basophils # (auto) 0.06 K/uL (0.00-0.20); Basophils % (auto) 0.4 %; Eosinophils # (auto) 0.29 K/uL (0.00-0.50); Eosinophils % (auto) 1.9 %; Immature Granulocytes # (auto) 0.06 K/uL (0.01-0.20); Immature Granulocytes % (auto) 0.4 %; Lymphocytes # (auto) 1.06 K/uL (1.20-3.40); Monocytes # (auto) 0.65 K/uL (0.11-0.59); Monocytes % (auto) 4.3 %; Neutrophils # (auto) 13.05 K/uL (1.40-6.50)
[2024-11-25 07:23] LABS: BUN Creatinine Ratio 21.9 (10-20); Calcium 8.1 mg/dl (8.6-10.3); Creatinine Clr Calc Pharmacy 40.2 ml/min; Magnesium 2.1 mg/dl (1.7-2.4); Potassium 3.8 mmol/L (3.5-5.1)
--- NOTE | 2024-11-25 08:34 | Infectious Disease Consult ---
Date of Consultation November 25, 2024 Assessment & Plan (1) Calculus of proximal right ureter: (2) Pyelonephritis of right kidney: (3) E coli bacteremia: Plan Problems: #Obstructing R pelviureteric junction calculus with hydronephrosis and pyelonephritis #E coli bacteremia #Penicillin allergy (rash) Micro: 11/24 00:07 BCx: E coli in 2/2 bottles 11/23 23:59 BCx: E coli in 2/2 bottles 11/23 UCx: pending Abx: Ceftriaxone 1 g 11/23, 2 g 11/25 - Cefepime 11/24 - 11/25 74 yo F with history of nephrolithiasis, T2DM, HLD, parathyroid tumor who presented on 11/23 with R flank pain, N/V, found on CT to have an obstructive R pelviureteric junction calculus with moderate hydronephrosis and enlarged R kidney with severe perinephric fat stranding, s/p R ureteral stent placement 11/24. Complicated by E coli bacteremia in 4/4 bottles. On presentation, she was afebrile, HR 113. Labs showed WBC 22.03, lactate 2.5, UA with >50 WBCs. Developed fever to 38.2 on 11/24 PM. Leukocytosis has downtrended to 15.17. She will follow-up with urology as outpatient for definitive stone treatment. Recommendations: -Follow-up E coli sensitivities -Stopped cefepime, started ceftriaxone 2 g IV q24h -Anticipate transitioning to PO antibiotics on discharge Will continue to follow. Consultation Information This patient recommendation is based on a telemedicine consult request which was completed asynchronously through chart review and information provided by the primary physician. The patient was not seen or examined today. The evaluation is consultative in nature and all patient care and treatment decisions can either be accepted or rejected by the patient's primary hospital-based treating physician using their own independent medical judgment for their patient. Retail Operations Specialist contact information: Please call [facility] . (Phone Number For Physician Use Only) Time Spent Reviewing Chart: 31+ minutes History of Present Illness Reason for Consultation: Gram negative bacteremia Attending Physician: Saadia Smith MD History of Present Illness 74 yo F with history of nephrolithiasis, T2DM, HLD, parathyroid tumor who presented on 11/23 with R flank pain, N/V. Denied dysuria, hematuria, urinary frequency or urgency. On presentation, she was afebrile, HR 113. Labs showed WBC 22.03, lactate 2.5, UA with >50 WBCs. CXR with no acute findings. CT AP without contrast showed obstructive R pelviureteric junction calculus with moderate hydronephrosis and enlarged R kidney with severe perinephric fat stranding. Pt was started on ceftriaxone. Urology consulted and took the pt to the OR on 11/24 for R ureteral stent placement. Per operative note, bladder was filled with purulent urine. She will follow-up with urology as outpatient for definitive stone treatment. Blood cultures growing E coli in / bottles. Febrile to 38.2 last night. Allergies Allergy/AdvReac Type Severity Reaction Status Date / Time cat dander Allergy Intermediate ITCHING Verified 11/24/24 10:25 Penicillins Allergy Intermediate RASH Verified 11/24/24 10:25 doxycycline AdvReac Intermediate vomiting, Verified 11/24/24 10:25 weakness sitagliptin [From Januvia] AdvReac Intermediate hair loss Verified 11/24/24 10:25 empagliflozin AdvReac anger Verified 11/24/24 10:25 [From Jardiance] Home Medications Medication Instructions Recorded Confirmed Type calcium 500 mg-vitamin D3 100 1 tab PO DAILY 02/05/23 11/24/24 History unit-vitamin K 40 mcg chewable tablet rosuvastatin 10 mg tablet 10 mg PO Q OTHER DAY #45 tabs 07/02/23 11/24/24 Rx albuterol sulfate 90 mcg/actuation 2 inha inhalation QID PRN 08/22/24 11/24/24 Rx aerosol inhaler shortness of breath or wheezing #1 inhaler sodium chloride 0.65 % nasal spray 2 spray intranasal QID PRN dry 10/16/24 11/24/24 Rx aerosol ([place] Saline) nasal passages #50 mL metformin 500 mg tablet,extended 1,000 mg PO BID 11/24/24 11/24/24 History release 24 hr Patient History Medical History History of cataract History of kidney stones Surgical History History of lithotripsy History of parathyroid surgery History of throat surgery History of wisdom tooth extraction Family History Father Diabetes Glaucoma Prostate cancer Macular degeneration Aunt Colorectal cancer Sister Diabetes Gallbladder disease Other No family history of bleeding disorder Denies family history of Ovarian cancer Myocardial infarction Breast cancer Lung cancer Stroke Social History Smoking Status: Never smoker Tobacco Type: Cigarettes Second Hand Exposure: No; Do You Dip or Chew Tobacco: No; Hx Alcohol Use: Yes Alcohol type: hard liquor Alcohol Intake Frequency: Monthly or Less Hx Substance Use: No Preferred Language: Serbian Communication Ability: Effective Visual Impairment: Limited Hearing Ability: Normal Digital Commentator Required: No Beliefs That Will Affect Care: None marital status: / Current Living Situation: Alone Current Living Situation Comment: 1 dog current occupational status: retired How many Children do You have: 1 Feels Safe at Home: Yes Childhood Exposure to Second-Hand Smoke: Yes Diet: diabetic caffeine: Yes Dental Care, Regularly: Yes Physical Activity Frequency: Daily Physical Activity Frequency Comment: Tries to walk Seatbelt Use: always Sunscreen Use: Yes Assistive Devices: None Results & Data Vital Signs (Past 12 Hours) Vital Signs Temp Pulse Pulse Resp BP Pulse Ox O2 Del Method 11/25/24 07:56 36.6 C 109 H 18 102/68 93 Room Air 11/25/24 04:58 86 109/63 11/25/24 02:21 36.7 C 85 16 97/64 L 96 Room Air 11/24/24 23:00 99 H 11/24/24 22:46 38.2 C H 102 H 17 106/64 92 Room Air Laboratory Results Short CBC 11/25/24 Range/Units 05:26 WBC 15.17 H (4.8-10.8) K/ul Hgb 10.6 L (12.0-16.0) g/dl Hct 32.1 L (37.0-47.0) % Plt Count 230 (130-400) K/uL BMP 11/25/24 05:26 Sodium 134 L Potassium 3.8 Chloride 102 Carbon Dioxide 25 BUN 23 Creatinine 1.05 Glucose 138 H Calcium 8.1 L Diagnostic Findings Chest X-Ray 11/23/24 23:19 Exam(s): XR CXR 1 VIEW EXAM: XR Chest, 1 View CLINICAL HISTORY: Reason for exam: Sepsis. TECHNIQUE: Frontal view of the chest. COMPARISON: August 22, 2024 FINDINGS: Lungs: Unremarkable. No consolidation. Pleural space: Unremarkable. No pneumothorax. Heart: Unremarkable. No cardiomegaly. Mediastinum: Unremarkable. Normal mediastinal contour. Bones/joints: Mild scoliosis of the thoracic spine, similar to previous. No acute fracture. Upper abdomen: Unremarkable as visualized. No pneumoperitoneum under the diaphragm. IMPRESSION: No acute findings in the chest. Electronically signed by: Sammy Webb MD 11/24/24 00:12 AM Abdomen/Pelvis CT 11/24/24 01:44 EXAM: CT abd pelvis wo con CLINICAL HISTORY: right flank pain ?stone TECHNIQUE: Contiguous axial images were obtained from the level of the diaphragm to the pubic symphysis without intravenous or oral contrast. Coronal and sagittal reconstructions were likewise performed and indicated to increase the sensitivity for detecting clinically relevant pathology. CT scan was performed according to ALARA (as low as reasonable achievable). COMPARISON: None FINDINGS: The visualized lung bases are clear. Evaluation of the abdominal and pelvic visceral organs is limited without intravenous contrast. The unenhanced liver, spleen, pancreas, and adrenal glands are grossly unremarkable. The gallbladder is present. Right Kidney: Enlarged in size measuring 11 x 7.7 cm. Evidence of 16 x 11 mm radiodense ( 1324 to 1707 HU) calculus noted at right pelviureteric junction with moderate hydronephrosis. Evidence of exophytic hypodense lesion with coarse calcifications noted at lower pole of right kidney measuring 64 x 63 x 53 mm ( CC x AP x TR) - could represent cyst. Severe perinephric fat stranding noted. There is evidence of fat stranding in the retroperitoneum along the anterior aspect of abdominal aorta and right common iliac artery. There is mild dilatation of the right ureter throughout its course with mild periureteric fat stranding, however, no evidence of radiodense calculus within. Left Kidney: Measures 10 x 5.8 cm. Mild perinephric fat stranding is seen. There is no hydronephrosis. No evidence of calcification. Left ureter is normal in caliber. No fluid collections are seen. Evidence of colonic diverticuli with no evidence of diverticulitis. No evidence of focal or diffuse bowel wall thickening or evidence of bowel obstruction is seen. The appendix is visualized in the right lower quadrant and appears within normal limits. The aorta is normal in caliber. The urinary bladder is normal in contour. Uterus is normal in size with evidence of myometrial calcification. Evidence of hypodense lesion measuring 30 x 23 mm in right ovary- likely cyst. Left ovary appears normal. 17.6 mm defect at umbilicus through which fat is seen herniating content. No aggressive appearing osseous lesions are identified. Degenerative changes noted in lumbosacral spine with spondylosis changes with curvature towards left side. IMPRESSION: Obstructive right pelviureteric junction calculus with moderate hydronephrosis and enlarged right kidney with severe perinephric fat stranding. Exophytic hypodense lesion with coarse calcifications at lower pole of right kidney - likely cyst - suggest ultrasound correlation Hypodense lesion in right ovary - likely cyst - suggest ultrasound correlation Evidence of umbilical hernia with omentum as herniating content. Spondylar degenerative changes in lumbosacral spine Electronically signed by Orlando Remy 11-24-2024 05:55 AM Abdomen Fluoroscopy 11/24/24 08:00 FL KUB CLINICAL HISTORY: Stent COMPARISON STUDY: None FLUOROSCOPY TIME: 17 seconds FLUOROSCOPY IMAGES: 6 EXPOSURE DOSE: 4 mGy FINDINGS: Fluoroscopy was provided for urologic procedure. IMPRESSION: Intraoperative fluoroscopy. ACT 112: Negative or not required by law. Electronically signed by: Juwan Fernando M.D. 11/24/2024 12:06 PM Medications Administered Current Inpatient Medications Albuterol (Albuterol Hfa 8 Gm Inhaler) 2 puffs INH QID PRN PRN Reason: shortness of breath or wheezing Stop: 12/24/24 01:59 Dextrose (Dextrose 50% 50 Ml Syringe) 25 - 50 ml IV UD PRN; Protocol PRN Reason: Hypoglycemia Protocol Stop: 12/24/24 02:24 Docusate Sodium (Docusate Sodium 100 Mg Cap) 100 mg PO BID PRN PRN Reason: Constipation Stop: 12/24/24 01:59 Glucagon (Glucagon For Inj 1 Mg Vial) 1 mg SQ UD PRN; Protocol PRN Reason: Hypoglycemia Protocol Stop: 12/24/24 02:24 Glucose (Glucose 40% Gel 15 Gm Tube) 15 - 30 gm PO UD PRN; Protocol PRN Reason: Hypoglycemia Protocol Stop: 12/24/24 02:24 Glucose (Glucose 10 Tab/Tube) 4 - 8 tab PO UD PRN; Protocol PRN Reason: Hypoglycemia Protocol Stop: 12/24/24 02:24 Acetaminophen (Ofirmev) 1,000 mg in 100 mls @ 400 mls/hr IV Q8H PRN PRN Reason: Pain or Fever Stop: 11/27/24 07:59 Last Infusion: 11/24/24 22:48 Dose: Infused Lactated Ringer's (Lr) 1,000 mls @ 15 mls/hr IV .Q24H [facility] Stop: 11/27/24 10:29 Last Infusion: 11/24/24 10:41 Dose: Infused Ceftriaxone Sodium (Rocephin) 2,000 mg in 50 mls @ 100 mls/hr IV Q24H [facility] Stop: 12/09/24 16:59 Insulin Aspart (Insulin Aspart Per Unit Charge) 0 units SC ACHS [facility] Stop: 12/24/24 07:29 Last Admin: 11/25/24 08:17 Dose: Not Given Melatonin (Melatonin 3 Mg Tab) 3 mg PO HS PRN PRN Reason: Sleep Stop: 12/24/24 01:59 Miscellaneous (Carbohydrates For Hypoglycemia ) 15 - 30 gm PO UD PRN PRN Reason: Hypoglycemia Protocol Stop: 12/24/24 02:24 Morphine Sulfate (Morphine Sulfate 2 Mg/Ml Carp) 2 mg IV Q6H PRN PRN Reason: Moderate Pain (Scale 4, 5, 6) Stop: 12/08/24 01:59 Morphine Sulfate (Morphine Sulfate 4 Mg/Ml 1 Ml Carp\Vial) 4 mg IV Q6H PRN PRN Reason: Severe Pain (Scale 7, 8, 9,10) Stop: 12/08/24 01:59 Last Admin: 11/24/24 03:40 Dose: 4 mg Ondansetron HCl (Ondansetron Inj 2 Mg/Ml 2 Ml Vial) 4 mg IV Q6H PRN PRN Reason: Nausea And Vomiting Stop: 12/24/24 01:59 Last Admin: 11/24/24 03:43 Dose: 4 mg Rosuvastatin Calcium (Rosuvastatin Calcium 10 Mg Tab) 10 mg PO Q48H [facility] Stop: 12/26/24 08:59 Sodium Chloride (Sodium Chloride 0.65% Na Soln 45 Ml ([place])) 2 sprays NA QID PRN PRN Reason: dry nasal passages Stop: 12/24/24 01:59
--- NOTE | 2024-11-25 09:58 | Urology Progress Note ---
Date of Service November 25, 2024 Assessment & Plan (1) Calculus of proximal right ureter: (2) Sepsis: Plan: - Pt POD#1 s/p cystoscopy and right ureteral stent placement - Subjectively feeling better today - Febrile last night (Tmax 38.2), afebrile overnight and this am - Tachy this morning, otherwise stable vitals - Lab work reviewed - creatinine 1.05, WBC 15.17 - Blood cultures with E.coli - Urine culture is pending - Continue broad spectrum antibiotics and narrow per sensitivity data when available - Tolerating right ureteral stent with minimal bother - Continue supportive care and medical management per hospital medicine service - Recommend d/c with course of antibiotics per culture data for complicated UTI when medically stable - Recommend Tamsulosin, prn Pyridium and prn analgesia for stent management - Expected clinical course reviewed, all questions answered - Will arrange outpatient follow-up with our service to set up definitive stone treatment - will sign off, recall as needed Admission and Anticipated Discharge Date Admission Date: November 24, 2024 Subjective Patient seen and examined at bedside this morning. She is awake and sitting up in bedside chair. She reports she is feeling much better today. Febrile last night, Tmax 38.2. Afebrile overnight. Denies flank pain, fever or chills at present. Voiding spontaneously. Review of Systems Constitutional: as per Subjective / HPI Genitourinary: as per Subjective / HPI Physical Exam Constitutional: well developed and well nourished; no acute distress Respiratory: normal respiratory effort; no respiratory distress and no labored breathing Gastrointestinal (Abdomen): Inspection/Auscultation: abdomen normal to inspection Musculoskeletal: Head/Neck/Chest: normocephalic Neurologic: moves all extremities and awake Psychiatric: Orientation: alert and oriented x 3 Results & Data Vital Signs (Past 12 Hours) Vital Signs Temp Pulse Pulse Resp BP Pulse Ox O2 Del Method 11/25/24 07:56 36.6 C 109 H 18 102/68 93 Room Air 11/25/24 04:58 86 109/63 11/25/24 02:21 36.7 C 85 16 97/64 L 96 Room Air 11/24/24 23:00 99 H 11/24/24 22:46 38.2 C H 102 H 17 106/64 92 Room Air PG Care Time/CCT Total # of Minutes Spent Total Time Spent with Patient: Total time spent is greater than 50% in coordination of care (as documented) at patient's floor/unit and/or counseling patient: Coding Level of Care Code 75135 SUB INP/OBS CARE 08/15MIN Diagnoses Calculus of proximal right ureter N20.1 Sepsis A41.9
--- NOTE | 2024-11-25 13:37 | Emergency Department Note ---
Impression & Plan Sepsis, Acute UTI Admit to the [facility] ED Provider Note NAME: ASHLIE COHEN AGE: 74 SEX: Female INFORMANT: Patient ED PROVIDER(S): Michelle Ramirez DO CHIEF COMPLAINT: right flank pain; chills PLAN: Disposition: admit to the [facility] MEDICAL DECISION MAKING: This is a 74-year-old female patient who developed right flank pain earlier today while she was cleaning out her refrigerator and thought that she had strained her back. That pain was short-lived. she continued to feel unwell throughout the afternoon with nausea, vomiting and chills. she presents here to the emergency department with fever and tachycardia. A sepsis protocol was performed and the patient was noted to have a white blood cell count of 22,000 and elevated lactate at 2.5. she was immediately treated with IV Rocephin as she has had previous E. coli UTIs which were susceptible to Rocephin in the past as she has an allergy to penicillin. Patient was also bolused with IV crystalloids at 30mL/kg according to her ideal body weight. patient remained hemodynamically stable. Patient's urine appeared to be infected. Glucose was elevated at 228. H&H were stable. Troponin was negative. Procalcitonin was negative. I discussed the case with the [facility] and they will evaluate for further inpatient care. Care/management discussed with: sawmill manager and [facility] Triage Nursing notes: reviewed and agree with them. Vital Signs: reviewed and remarkable for hypertension and tachycardia Additional History obtained from: patient's family ember who is at the bedside Differential Diagnosis: sepsis, UTI, dehydration, pyelonephritis, cystitis, infected stone Diagnostics, independently interpreted by me: ECG: Sinus tachycardia at [address]/T wave changes or signs of ischemia/ Repeat ECG: Sinus tachycardia at [address] segment elevation while the patient was having some chest discomfort. Cardiac Monitoring: sinus tachycardia at 108 Imaging studies: portable chest x-ray: No acute pulmonary infiltrates or consolidation as per my independent interpretation HPI: 74 year old Female arrives for evaluation of right flank pain, chills, nausea and vomiting. developed right flank pain earlier today while she was cleaning out her refrigerator and thought that she had strained her back. That pain was short-lived. she continued to feel unwell throughout the afternoon with nausea, vomiting and chills. PAST MEDICAL HISTORY: See Below, PAST SURGICAL HISTORY: See Below, SOCIAL HISTORY: See Below, HOME MEDICATIONS: see list ALLERGIES: see list VITALS: See Below PHYSICAL EXAMINATION: HEENT: Head - normocephalic and atraumatic. Pupils are equal, round, and reactive to light. Extraocular eye muscles are intact, and sclera are anicteric. Nose - moist nasal mucosa without discharge. Mouth - moist buccal mucosa. Oropharynx is nonerythematous and there is no tonsillar exudate or edema noted. Neck: Supple; no JVD, nuchal rigidity, cervical lymphadenopathy. Heart: Tachycardic rate and regular rhythm. There is a normal S1 and S2 with no murmurs, clicks, or gallops appreciated. Lungs: Clear to auscultation bilaterally with no wheezes, rales, or rhonchi. Abdomen: Soft, completely nontender, nondistended, with good bowel sounds. There are no palpable pulsatile masses or hepatosplenomegaly. There is no guarding, rigidity, or rebound noted. Extremities: No evidence of cyanosis, clubbing, or edema. There are easily palpable peripheral pulses. Skin: warm and dry with good turgor and no rashes. emergency department treatment: satellite project site monitor, IV normal saline bolus, IV Zofran, IV Rocephin emergency department course: The patient was evaluated in room A-12. A complete history and physical was performed. IV lock was initiated and labs are drawn as above. An order was placed for continuous cardiac monitoring. The patient was in a sinus tachycardia at a rate of 108. A twelve-lead EKG was obtained as described above. A septic protocol was performed. the urine specimen was obtained. Patient was given a dose of IV Zofran for nausea. Portable chest x-ray was performed. Twelve-lead EKG was obtained. She was bolused with IV normal saline solution at 30 mL/kg according to her ideal body weight. I did review previous urine cultures. The patient was given a dose of IV Rocephin. I discussed the case with the [facility] Hospitalist. I have personally spent greater than 30 minutes of critical care time in the direct management of this patient. This includes bedside care, interpretation of diagnostic studies, and testing, discussion with consultants, patient, and family members, and other required patient management activities. This 30 minutes is in excess of all separately billable procedures. Past Med/Surg History Problem List (Updated 11/26/24 @ 16:23 by Michelle Ramirez DO) Acute UTI (Acute) Sepsis (Acute) E coli bacteremia Calculus of proximal right ureter Nausea & vomiting Hypomagnesemia Pyelonephritis of right kidney Sepsis Anterior epistaxis Staph skin infection Type 2 diabetes mellitus with microalbuminuria Osteoporosis Multinodular thyroid Anxiety, generalized (~10/16/24) Thyromegaly Tinnitus Acute dysfunction of both eustachian tubes Hyperlipidemia (Acute) Prolapsed bladder (Acute) Vitamin D deficiency (Acute) Medical History History of cataract History of kidney stones Surgical History History of lithotripsy History of parathyroid surgery History of throat surgery History of wisdom tooth extraction Family History Father Diabetes Glaucoma Prostate cancer Macular degeneration Aunt Colorectal cancer Sister Diabetes Gallbladder disease Other No family history of bleeding disorder Denies family history of Ovarian cancer Myocardial infarction Breast cancer Lung cancer Stroke Social History Smoking Status: Never smoker Tobacco Type: Cigarettes Second Hand Exposure: No; Do You Dip or Chew Tobacco: No; Hx Alcohol Use: Yes Alcohol type: hard liquor Alcohol Intake Frequency: Monthly or Less Hx Substance Use: No Preferred Language: Uzbek Communication Ability: Effective Visual Impairment: Limited Hearing Ability: Normal Solution Maker Required: No Beliefs That Will Affect Care: None marital status: / Current Living Situation: Alone Current Living Situation Comment: 1 dog current occupational status: retired How many Children do You have: 1 Feels Safe at Home: Yes Childhood Exposure to Second-Hand Smoke: Yes Diet: diabetic caffeine: Yes Dental Care, Regularly: Yes Physical Activity Frequency: Daily Physical Activity Frequency Comment: Tries to walk Seatbelt Use: always Sunscreen Use: Yes Assistive Devices: None Allergies Allergies Allergy/AdvReac Type Severity Reaction Status Date / Time cat dander Allergy Intermediate ITCHING Verified 11/24/24 10:25 Penicillins Allergy Intermediate RASH Verified 11/24/24 10:25 doxycycline AdvReac Intermediate vomiting, Verified 11/24/24 10:25 weakness sitagliptin [From Januvia] AdvReac Intermediate hair loss Verified 11/24/24 10:25 empagliflozin AdvReac anger Verified 11/24/24 10:25 [From Jardiance] Home Meds Home Medications Medication Instructions Recorded Confirmed calcium 500 mg-vitamin D3 100 1 tab PO DAILY 02/05/23 11/24/24 unit-vitamin K 40 mcg chewable tablet metformin 500 mg tablet,extended 1,000 mg PO BID 11/24/24 11/24/24 release 24 hr Previous Rx's Medication Instructions Recorded rosuvastatin 10 mg tablet 10 mg PO Q OTHER DAY #45 tabs 07/02/23 albuterol sulfate 90 mcg/actuation 2 inha inhalation QID PRN 08/22/24 aerosol inhaler shortness of breath or wheezing #1 inhaler sodium chloride 0.65 % nasal spray 2 spray intranasal QID PRN dry 10/16/24 aerosol ([place] Saline) nasal passages #50 mL Results & Data (ED) Laboratory Data 11/26/24 05:35 11/26/24 05:35 Lab Results 11/23/24 11/23/24 11/23/24 Range/Units 22:18 22:21 23:19 WBC 22.03 H (4.8-10.8) K/ul RBC 4.30 (4.20-5.40) M/uL Hgb 12.2 (12.0-16.0) g/dl Hct 36.5 L (37.0-47.0) % MCV 84.9 (80.0-100.0) fL MCH 28.4 (25.0-34.0) pg MCHC 33.4 (32.0-36.0) g/dL RDW Std Deviation 38.4 (36.4-46.3) fL RDW Coeff of Ifeoma 12.5 (11.5-14.5) % Plt Count 409 H (130-400) K/uL MPV 9.1 L (9.4-12.4) fL Immature Gran % (Auto) 0.4 % Neut % (Auto) 89.6 % Lymph % (Auto) 6.0 % Jones % (Auto) 3.4 % Eos % (Auto) 0.2 % Baso % (Auto) 0.4 % Neut # (Auto) 19.75 H (1.40-6.50) K/uL Lymph # (Auto) 1.33 (1.20-3.40) K/uL Jones # (Auto) 0.74 H (0.11-0.59) K/uL Eos # (Auto) 0.04 (0.00-0.50) K/uL Baso # (Auto) 0.08 (0.00-0.20) K/uL Immature Gran # (Auto) 0.09 (0.01-0.20) K/uL Sodium 136 (136-145) mmol/L Potassium 3.6 (3.5-5.1) mmol/L Chloride 100 (98-107) mmol/L Carbon Dioxide 24 (21-32) mmol/L Anion Gap 12 H (3-11) BUN 20 (6-23) mg/dl Creatinine 1.03 (0.6-1.2) mg/dl Est Cr Clr Drug Dosing 41.5 ml/min eGFR 56.35 BUN/Creatinine Ratio 19.4 (10-20) Glucose 228 H (70-99(Fasting)) mg/dl Lactate (0.4-2.0) mmol/L Calcium 9.4 (8.6-10.3) mg/dl Magnesium 1.4 L (1.7-2.4) mg/dl Total Bilirubin 0.4 (0.2-1.0) mg/dl AST 14 (13-39) U/L ALT 5 L (7-52) U/L Alkaline Phosphatase 73 (34-104) U/L Troponin I High Sens 7.9 (0-14) pg/ml Total Protein 7.6 (6.0-8.3) gm/dl Albumin 4.4 (3.4-5.0) gm/dl Globulin 3.2 (2.5-4.0) gm/dl Albumin/Globulin Ratio 1.4 (0.9-2) Procalcitonin < 0.02 (0-0.5) ng/ml Urine Color Yellow Urine Appearance Cloudy A (Clear) Urine pH 6.5 (4.5-7.5) POC Urine pH Ur Specific [place] 1.012 (1.000-1.030) Urine Protein 1+ H (Negative) POC Urine Protein Urine Glucose (UA) 1+ H (Negative) POC Ur Glucose (UA) Urine Ketones 1+ H (Negative) POC Urine Ketones Urine Blood 1+ H (Negative) POC Urine Blood Urine Nitrite Negative (Negative) POC Urine Nitrite Urine Bilirubin Negative (Negative) POC Urine Bilirubin Urine Urobilinogen Negative (Negative) POC Urine Urobilinogen Ur Leukocyte Esterase 3+ H (Negative) POC U Leukocyte Esteras Urine WBC (Auto) >50 H (0-5) /hpf Urine RBC (Auto) >20 H (0-2) /hpf U Hyaline Cast (Auto) 0-2 (0-2) /lpf U Epithel Cells (Auto) 0-2 (0-2) /hpf Urine Bacteria (Auto) 4+ H (None Seen) Enterobacterales (PCR) (NotDetected) E. coli (PCR) (NotDetected) mcr-1 Colistin Res Gene PCR (NotDetected) blaIMP Car res Gene PCR (NotDetected) KPC-Carbap Res Gene PCR (NotDetected) blaNDM Car Res Gene PCR (NotDetected) OXA-48 Carbapenem Resis Gene (PCR) (NotDetected) blaVIM Car Res Gene PCR (NotDetected) CTX-M Gene Resistance (PCR) (NotDetected) Bld Cult ID Panel PCR (NotDetected) 11/23/24 11/23/24 Range/Units 23:48 23:59 WBC (4.8-10.8) K/ul RBC (4.20-5.40) M/uL Hgb (12.0-16.0) g/dl Hct (37.0-47.0) % MCV (80.0-100.0) fL MCH (25.0-34.0) pg MCHC (32.0-36.0) g/dL RDW Std Deviation (36.4-46.3) fL RDW Coeff of Ifeoma (11.5-14.5) % Plt Count (130-400) K/uL MPV (9.4-12.4) fL Immature Gran % (Auto) % Neut % (Auto) % Lymph % (Auto) % Jones % (Auto) % Eos % (Auto) % Baso % (Auto) % Neut # (Auto) (1.40-6.50) K/uL Lymph # (Auto) (1.20-3.40) K/uL Jones # (Auto) (0.11-0.59) K/uL Eos # (Auto) (0.00-0.50) K/uL Baso # (Auto) (0.00-0.20) K/uL Immature Gran # (Auto) (0.01-0.20) K/uL Sodium (136-145) mmol/L Potassium (3.5-5.1) mmol/L Chloride (98-107) mmol/L Carbon Dioxide (21-32) mmol/L Anion Gap (3-11) BUN (6-23) mg/dl Creatinine (0.6-1.2) mg/dl Est Cr Clr Drug Dosing ml/min eGFR BUN/Creatinine Ratio (10-20) Glucose (70-99(Fasting)) mg/dl Lactate 2.5 H* (0.4-2.0) mmol/L Calcium (8.6-10.3) mg/dl Magnesium (1.7-2.4) mg/dl Total Bilirubin (0.2-1.0) mg/dl AST (13-39) U/L ALT (7-52) U/L Alkaline Phosphatase (34-104) U/L Troponin I High Sens (0-14) pg/ml Total Protein (6.0-8.3) gm/dl Albumin (3.4-5.0) gm/dl Globulin (2.5-4.0) gm/dl Albumin/Globulin Ratio (0.9-2) Procalcitonin (0-0.5) ng/ml Urine Color Urine Appearance (Clear) Urine pH (4.5-7.5) POC Urine pH Cancelled Ur Specific [place] (1.000-1.030) Urine Protein (Negative) POC Urine Protein Cancelled Urine Glucose (UA) (Negative) POC Ur Glucose (UA) Cancelled Urine Ketones (Negative) POC Urine Ketones Cancelled Urine Blood (Negative) POC Urine Blood Cancelled Urine Nitrite (Negative) POC Urine Nitrite Cancelled Urine Bilirubin (Negative) POC Urine Bilirubin Cancelled Urine Urobilinogen (Negative) POC Urine Urobilinogen Cancelled Ur Leukocyte Esterase (Negative) POC U Leukocyte Esteras Cancelled Urine WBC (Auto) (0-5) /hpf Urine RBC (Auto) (0-2) /hpf U Hyaline Cast (Auto) (0-2) /lpf U Epithel Cells (Auto) (0-2) /hpf Urine Bacteria (Auto) (None Seen) Enterobacterales (PCR) DETECTED A (NotDetected) E. coli (PCR) DETECTED A (NotDetected) mcr-1 Colistin Res Gene PCR Not Detected (NotDetected) blaIMP Car res Gene PCR Not Detected (NotDetected) KPC-Carbap Res Gene PCR Not Detected (NotDetected) blaNDM Car Res Gene PCR Not Detected (NotDetected) OXA-48 Carbapenem Resis Gene (PCR) Not Detected (NotDetected) blaVIM Car Res Gene PCR Not Detected (NotDetected) CTX-M Gene Resistance (PCR) Not Detected (NotDetected) Bld Cult ID Panel PCR See PCR Comment (NotDetected) Administered Medications Acetaminophen (Ofirmev) 1,000 mg in 100 mls @ 400 mls/hr IV Q8H PRN PRN Reason: Pain or Fever Stop: 11/27/24 07:59 Last Infusion: 11/24/24 22:48 Dose: Infused Documented By: Admin: 11/24/24 22:30 Dose: 400 mls/hr Documented By: LESLIE Lactated Ringer's (Lr) 1,000 mls @ 15 mls/hr IV .Q24H [facility] Stop: 11/27/24 10:29 Last Admin: 11/26/24 12:01 Dose: Not Given Documented By: Admin: 11/25/24 19:12 Dose: Not Given Documented By: Infusion: 11/24/24 10:41 Dose: Infused Documented By: Admin: 11/24/24 10:24 Dose: 15 mls/hr Documented By: JEANNIE Ceftriaxone Sodium (Rocephin) 2,000 mg in 50 mls @ 100 mls/hr IV Q24H [facility] Stop: 12/09/24 16:59 Last Infusion: 11/25/24 18:56 Dose: Infused Documented By: Admin: 11/25/24 17:58 Dose: 100 mls/hr Documented By: SHRUTHI Insulin Aspart (Insulin Aspart Per Unit Charge) 0 units SC ACHS [facility] Stop: 12/24/24 07:29 Last Admin: 11/26/24 12:02 Dose: Not Given Documented By: Admin: 11/26/24 08:32 Dose: Not Given Documented By: Admin: 11/25/24 20:49 Dose: Not Given Documented By: Admin: 11/25/24 16:53 Dose: Not Given Documented By: Admin: 11/25/24 12:15 Dose: Not Given Documented By: Admin: 11/25/24 08:17 Dose: Not Given Documented By: Admin: 11/24/24 20:28 Dose: Not Given Documented By: Admin: 11/24/24 17:40 Dose: 1 units Documented By: SILVANA Co-signed By: SHRUTHI Admin: 11/24/24 12:35 Dose: 2 units Documented By: SILVANA Co-signed By: POLO Admin: 11/24/24 07:46 Dose: 3 units Documented By: SILVANA Co-signed By: POLO Morphine Sulfate (Morphine Sulfate 4 Mg/Ml 1 Ml Carp\Vial) 4 mg IV Q6H PRN PRN Reason: Severe Pain (Scale 7, 8, 9,10) Stop: 12/08/24 01:59 Last Admin: 11/24/24 03:40 Dose: 4 mg Documented By: HARRIS Ondansetron HCl (Ondansetron Inj 2 Mg/Ml 2 Ml Vial) 4 mg IV Q6H PRN PRN Reason: Nausea And Vomiting Stop: 12/24/24 01:59 Last Admin: 11/24/24 03:43 Dose: 4 mg Documented By: HARRIS Rosuvastatin Calcium (Rosuvastatin Calcium 10 Mg Tab) 10 mg PO Q48H [facility] Stop: 12/26/24 08:59 Last Admin: 11/26/24 08:35 Dose: 10 mg Documented By: BABATUNDE Discontinued Medications Sodium Chloride (Nss) 1,000 mls @ 999 mls/hr IV .Q1H1M ONE Stop: 11/24/24 01:08 Last Infusion: 11/24/24 01:36 Dose: Infused Documented By: net mvc developer: 11/24/24 00:22 Dose: 999 mls/hr Documented By: MED Ceftriaxone Sodium (Rocephin) 1,000 mg in 50 mls @ 100 mls/hr IV NOW STA Stop: 11/24/24 00:39 Last Infusion: 11/24/24 01:36 Dose: Infused Documented By: net mvc developer: 11/24/24 00:47 Dose: 100 mls/hr Documented By: MED Sodium Chloride (Nss) 500 mls @ 999 mls/hr IV .Q31M [facility] Stop: 11/24/24 00:51 Last Infusion: 11/24/24 01:36 Dose: Infused Documented By: net mvc developer: 11/24/24 00:23 Dose: 999 mls/hr Documented By: MED Acetaminophen (Ofirmev) 1,000 mg in 100 mls @ 400 mls/hr IV NOW STA Stop: 11/24/24 01:15 Last Infusion: 11/24/24 03:53 Dose: Infused Documented By: [facility] Admin: 11/24/24 01:40 Dose: 400 mls/hr Documented By: MED Parenteral Electrolytes (Plasma-Lyte A Ph 7.4) 1,000 mls @ 125 mls/hr IV .Q8H [facility] Stop: 11/24/24 17:14 Last Infusion: 11/24/24 22:33 Dose: Infused Documented By: Admin: 11/24/24 14:27 Dose: 125 mls/hr Documented By: Infusion: 11/24/24 14:05 Dose: Infused Documented By: Infusion: 11/24/24 12:32 Dose: 125 mls/hr Documented By: Infusion: 11/24/24 10:08 Dose: 0 mls/hr Documented By: Admin: 11/24/24 03:41 Dose: 125 mls/hr Documented By: HARRIS Magnesium Sulfate/Dextrose (Magnesium Sulfate / D5w) 1 gm in 100 mls @ 50 mls/hr IV Q2H [facility] Stop: 11/24/24 05:14 Last Infusion: 11/24/24 05:50 Dose: Infused Documented By: [facility] Admin: 11/24/24 04:02 Dose: 50 mls/hr Documented By: Infusion: 11/24/24 04:02 Dose: Infused Documented By: [facility] Admin: 11/24/24 02:06 Dose: 50 mls/hr Documented By: MONICA Cefepime HCl (Maxipime 2000mg) 2,000 mg in 20 mls @ 5 mls/min IV Q12H [facility]; Protocol Stop: 12/08/24 17:29 Last Admin: 11/25/24 05:16 Dose: 5 mls/min Documented By: Admin: 11/24/24 18:13 Dose: 5 mls/min Documented By: SILVANA Ondansetron HCl (Ondansetron Inj 2 Mg/Ml 2 Ml Vial) Confirm Administered Dose 4 mg .ROUTE .STK-MED ONE Stop: 11/24/24 00:16 Last Admin: 11/24/24 00:22 Dose: 4 mg Documented By: MED Ondansetron HCl (Ondansetron Inj 2 Mg/Ml 2 Ml Vial) 4 mg IV NOW STA Stop: 11/24/24 01:02 Last Admin: 11/24/24 02:02 Dose: 4 mg Documented By: MED Discharge Plan Visit Data Chief Complaint: Flank Pain Stated Complaint: BACK PAIN, N/V, CHILLS ED Provider: Michelle Ramirez Discharge Problem: Sepsis, Acute UTI Patient Disposition: Admitted As Inpatient Condition: Critical Discharge Instructions Interventions: ED Discharge Assessment Last Done: 11/24/24 03:00
[2024-11-25] MEDS: cefTRIAXone SODIUM 2,000 MG/50 ML BAG IV SCH (17:58)
--- NOTE | 2024-11-25 19:37 | Hospitalist Progress Note ---
Date of Service November 25, 2024 Assessment & Plan (1) Sepsis: (2) Pyelonephritis of right kidney: (3) Hypomagnesemia: (4) Nausea & vomiting: Plan Patient is a 74-year-old female with past medical history of kidney stones, type II DM, hyperlipidemia, parathyroid tumor. She presented due to right sided flank pain and associated nausea and vomiting that began today. Patient was found to have a positive UA along with meeting SIRS criteria due to white count of 22.3 and heart rate of 124. She is being admitted for IV antibiotics for sepsis and pyelonephritis. #Sepsis/pyelonephritis - Patient with right flank pain and UA appears infectious with 3+ LE, >50 WBC, 4+ bacteria. Renal function stable. + SIRS: WBC 22.03 with neutrophil predominance, tachycardic 124 - s/p stents for nephrolithiasis - continue ABX #Hypomagnesemia mag 1.4, K+ 3.6. Suspect 2/2 depletion with vomiting. - 2G IV magnesium ordered - Trend BMP and mag #Nausea and vomiting - 2/2 infection above - Zofran as needed - Clear liquid diet, advance as tolerated - Hold nonessential p.o. medications #T2DM - Most recent A1C 7.3%. - hold Metformin with n/v - loose SSI ordered VTE ppx: SCDs, low risk and defer chemical ppx until AP CT resulted (may require surgical management if nephrolithiasis) Dispo: med surg Admission and Anticipated Discharge Date Admission Date: November 24, 2024 Subjective Patient seen and examined at bedside this morning. She is awake and sitting up in bedside chair. She reports she is feeling much better today. Febrile last night, Tmax 38.2. Afebrile overnight. Denies flank pain, fever or chills at present. Voiding spontaneously. Physical Exam Physical Exam: The patient is tired, alert and oriented 3, well developed and well nourished, normocephalic and atraumatic, in no acute distress. Non-toxic appearing. HEENT- EOMI, mucous membranes dry. Hearing grossly intact. Heart-normal S1 and S2. No murmurs, rubs or gallops. Lungs-clear bilaterally, no respiratory distress, no accessory muscle use. Abdomen-normal bowel sounds and soft. No ascites noted. Tender to palpation of right upper and lower quadrant. No CVA tenderness. Extremities- no clubbing, cyanosis, or edema. Rheumatologic-normal range of motion. Results & Data Results & Data Vital Signs (Past 12 Hours) Vital Signs Temp Pulse Pulse Resp BP Pulse Ox O2 Del Method 11/25/24 16:15 37.3 C 97 H 18 113/66 96 Room Air 11/25/24 14:47 93 H 11/25/24 11:37 36.9 C 94 H 20 102/64 98 Room Air 11/25/24 07:56 36.6 C 109 H 18 102/68 93 Room Air PG Care Time/CCT Total # of Minutes Spent Total Time Spent with Patient: Total time spent is greater than 50% in coordination of care (as documented) at patient's floor/unit and/or counseling patient: Coding Level of Care Code 32375 SUB INP/OBS CARE 2/35MIN Diagnoses Sepsis A41.9 Pyelonephritis of right kidney N12 Hypomagnesemia E83.42 Nausea & vomiting R11.2 Time Spent (min) 40
[2024-11-26 06:41] LABS: Basophils # (auto) 0.02 K/uL (0.00-0.20); Basophils % (auto) 0.2 %; Eosinophils # (auto) 0.31 K/uL (0.00-0.50); Eosinophils % (auto) 2.8 %; Hematocrit (blood only) 30.7 % (37.0-47.0); Immature Granulocytes # (auto) 0.04 K/uL (0.01-0.20); Immature Granulocytes % (auto) 0.4 %; Lymphocytes # (auto) 1.17 K/uL (1.20-3.40); Lymphocytes % (auto) 10.7 %; Mean Corpuscular Hemoglobin 28.1 pg (25.0-34.0); Mean Corpuscular Hgb Conc 32.6 g/dL (32.0-36.0); Mean Corpuscular Volume 86.2 fL (80.0-100.0); Mean Platelet Volume 9.6 fL (9.4-12.4); Monocytes # (auto) 0.62 K/uL (0.11-0.59); Monocytes % (auto) 5.7 %; Neutrophils # (auto) 8.81 K/uL (1.40-6.50); Neutrophils % (auto) 80.2 %; Platelet Count 228 K/uL (130-400); RDW Coefficient of Variation 12.5 % (11.5-14.5); RDW Standard Deviation 39.7 fL (36.4-46.3); Red Blood Count 3.56 M/uL (4.20-5.40); White Blood Count 10.97 K/ul (4.8-10.8)
[2024-11-26 06:58] LABS: C Reactive Protein 25.76 mg/dl (0-0.5); Calcium 8.4 mg/dl (8.6-10.3); Magnesium 1.9 mg/dl (1.7-2.4); Potassium 4.1 mmol/L (3.5-5.1)
[2024-11-26] MEDS: ROSUVASTATIN CALCIUM 10 MG TAB PO SCH (08:35)
--- NOTE | 2024-11-26 09:21 | Infectious Disease Progress Nt ---
Date of Service November 26, 2024 Assessment & Plan (1) Calculus of proximal right ureter: (2) Pyelonephritis of right kidney: (3) E coli bacteremia: Plan Problems: #Obstructing R pelviureteric junction calculus with hydronephrosis and pyelonephritis #E coli bacteremia #Penicillin allergy (rash) Micro: 11/24 00:07 BCx: E coli in 2/2 bottles 11/23 23:59 BCx: E coli in 2/2 bottles (R amp, cipro, levo. Otherwise S) 11/23 UCx: E coli Abx: Ceftriaxone 1 g 11/23, 2 g 11/25 - Cefepime 11/24 - 11/25 74 yo F with history of nephrolithiasis, T2DM, HLD, parathyroid tumor who presented on 11/23 with R flank pain, N/V, found on CT to have an obstructive R pelviureteric junction calculus with moderate hydronephrosis and enlarged R kidney with severe perinephric fat stranding, s/p R ureteral stent placement 11/24. Complicated by E coli bacteremia in 4/4 bottles. On presentation, she was afebrile, HR 113. Labs showed WBC 22.03, lactate 2.5, UA with >50 WBCs. UCx with E coli. Developed fever to 38.2 on 11/24 PM. Leukocytosis has downtrended. She will follow-up with urology as outpatient for definitive stone treatment. Recommendations: -On discharge, can transition from ceftriaxone to cefuroxime 500 mg PO q8h through 12/03 to complete a 10 day course from ureteral stent placement -At the time of definitive stone treatment, can give cefazolin as nhi op antibiotic Will sign off. Admission and Anticipated Discharge Date Admission Date: November 24, 2024 Subjective This patient recommendation is based on a telemedicine consult request which was completed asynchronously through chart review and information provided by the primary physician. The patient was not seen or examined today. The evaluation is consultative in nature and all patient care and treatment decisions can either be accepted or rejected by the patient's primary hospital-based treating physician using their own independent medical judgment for their patient. Time Spent Reviewing Chart: 11 - 20 minutes Afebrile WBC downtrended to 10.97 Results & Data Vital Signs (Past 12 Hours) Vital Signs Temp Pulse Pulse Resp BP Pulse Ox O2 Del Method 11/26/24 08:00 36.7 C 89 20 114/63 95 Room Air 11/26/24 07:36 92 H 11/26/24 03:54 36.9 C 102 H 16 130/67 94 Room Air 11/25/24 23:39 93 H 11/25/24 23:14 37.2 C 95 H 17 116/67 97 Room Air Laboratory Results Short CBC 11/26/24 Range/Units 05:35 WBC 10.97 H (4.8-10.8) K/ul Hgb 10.0 L (12.0-16.0) g/dl Hct 30.7 L (37.0-47.0) % Plt Count 228 (130-400) K/uL BMP 11/26/24 05:35 Sodium 135 L Potassium 4.1 Chloride 102 Carbon Dioxide 28 BUN 17 Creatinine 0.85 Glucose 141 H Calcium 8.4 L Medications Administered Current Inpatient Medications Albuterol (Albuterol Hfa 8 Gm Inhaler) 2 puffs INH QID PRN PRN Reason: shortness of breath or wheezing Stop: 12/24/24 01:59 Dextrose (Dextrose 50% 50 Ml Syringe) 25 - 50 ml IV UD PRN; Protocol PRN Reason: Hypoglycemia Protocol Stop: 12/24/24 02:24 Docusate Sodium (Docusate Sodium 100 Mg Cap) 100 mg PO BID PRN PRN Reason: Constipation Stop: 12/24/24 01:59 Glucagon (Glucagon For Inj 1 Mg Vial) 1 mg SQ UD PRN; Protocol PRN Reason: Hypoglycemia Protocol Stop: 12/24/24 02:24 Glucose (Glucose 40% Gel 15 Gm Tube) 15 - 30 gm PO UD PRN; Protocol PRN Reason: Hypoglycemia Protocol Stop: 12/24/24 02:24 Glucose (Glucose 10 Tab/Tube) 4 - 8 tab PO UD PRN; Protocol PRN Reason: Hypoglycemia Protocol Stop: 12/24/24 02:24 Acetaminophen (Ofirmev) 1,000 mg in 100 mls @ 400 mls/hr IV Q8H PRN PRN Reason: Pain or Fever Stop: 11/27/24 07:59 Last Infusion: 11/24/24 22:48 Dose: Infused Lactated Ringer's (Lr) 1,000 mls @ 15 mls/hr IV .Q24H [facility] Stop: 11/27/24 10:29 Last Admin: 11/25/24 19:12 Dose: Not Given Ceftriaxone Sodium (Rocephin) 2,000 mg in 50 mls @ 100 mls/hr IV Q24H [facility] Stop: 12/09/24 16:59 Last Infusion: 11/25/24 18:56 Dose: Infused Insulin Aspart (Insulin Aspart Per Unit Charge) 0 units SC ACHS [facility] Stop: 12/24/24 07:29 Last Admin: 11/26/24 08:32 Dose: Not Given Melatonin (Melatonin 3 Mg Tab) 3 mg PO HS PRN PRN Reason: Sleep Stop: 12/24/24 01:59 Miscellaneous (Carbohydrates For Hypoglycemia ) 15 - 30 gm PO UD PRN PRN Reason: Hypoglycemia Protocol Stop: 12/24/24 02:24 Morphine Sulfate (Morphine Sulfate 2 Mg/Ml Carp) 2 mg IV Q6H PRN PRN Reason: Moderate Pain (Scale 4, 5, 6) Stop: 12/08/24 01:59 Morphine Sulfate (Morphine Sulfate 4 Mg/Ml 1 Ml Carp\Vial) 4 mg IV Q6H PRN PRN Reason: Severe Pain (Scale 7, 8, 9,10) Stop: 12/08/24 01:59 Last Admin: 11/24/24 03:40 Dose: 4 mg Ondansetron HCl (Ondansetron Inj 2 Mg/Ml 2 Ml Vial) 4 mg IV Q6H PRN PRN Reason: Nausea And Vomiting Stop: 12/24/24 01:59 Last Admin: 11/24/24 03:43 Dose: 4 mg Rosuvastatin Calcium (Rosuvastatin Calcium 10 Mg Tab) 10 mg PO Q48H [facility] Stop: 12/26/24 08:59 Last Admin: 11/26/24 08:35 Dose: 10 mg Sodium Chloride (Sodium Chloride 0.65% Na Soln 45 Ml (Gibson)) 2 sprays NA QID PRN PRN Reason: dry nasal passages Stop: 12/24/24 01:59
--- NOTE | 2024-11-26 17:04 | Hospitalist Progress Note ---
Date of Service November 26, 2024 Assessment & Plan (1) Sepsis: Plan: ) Calculus of proximal right ureter: (2) Pyelonephritis of right kidney: (3) E coli bacteremia: Plan Problems: #Obstructing R pelviureteric junction calculus with hydronephrosis and pyelonephritis #E coli bacteremia #Penicillin allergy (rash) (2) Pyelonephritis of right kidney: Plan: 4 yo F with history of nephrolithiasis, T2DM, HLD, parathyroid tumor who presented on 11/23 with R flank pain, N/V, found on CT to have an obstructive R pelviureteric junction calculus with moderate hydronephrosis and enlarged R kidney with severe perinephric fat stranding, s/p R ureteral stent placement 11/24. Complicated by E coli bacteremia in / bottles. On presentation, she was afebrile, HR 113. Labs showed WBC 22.03, lactate 2.5, UA with >50 WBCs. UCx with E coli. Developed fever to 38.2 on 11/24 PM. Leukocytosis has downtrended. She will follow-up with urology as outpatient for definitive stone treatment. Second set of blood cultures have been drawn today we will wait for the results for them to be negative (3) Hypomagnesemia: Plan: Replaced (4) Nausea & vomiting: Plan: Present on admission now resolved Plan Patient is a 74-year-old female with past medical history of kidney stones, type II DM, hyperlipidemia, parathyroid tumor. She presented due to right sided flank pain and associated nausea and vomiting that began today. Patient was found to have a positive UA along with meeting SIRS criteria due to white count of 22.3 and heart rate of 124. She is being admitted for IV antibiotics for sepsis and pyelonephritis. #Sepsis/pyelonephritis - Patient with right flank pain and UA appears infectious with 3+ LE, >50 WBC, 4+ bacteria. Renal function stable. + SIRS: WBC 22.03 with neutrophil predominance, tachycardic 124 - s/p stents for nephrolithiasis - continue ABX - Follow repeat blood cultures Appreciate infectious disease recommendations for discharge #Hypomagnesemia mag 1.4, K+ 3.6. Suspect 2/2 depletion with vomiting. - 2G IV magnesium ordered - Trend BMP and mag #Nausea and vomiting - 2/2 infection above - Zofran as needed - Clear liquid diet, advance as tolerated - Hold nonessential p.o. medications #T2DM - Most recent A1C 7.3%. - hold Metformin with n/v - loose SSI ordered VTE ppx: SCDs, low risk and defer chemical ppx until AP CT resulted (may require surgical management if nephrolithiasis) Dispo: med surg Admission and Anticipated Discharge Date Admission Date: November 24, 2024 Subjective Afebrile WBC downtrended to 10.97 Physical Exam Physical Exam: The patient is tired, alert and oriented 3, well developed and well nourished, normocephalic and atraumatic, in no acute distress. Non-toxic appearing. HEENT- EOMI, mucous membranes dry. Hearing grossly intact. Heart-normal S1 and S2. No murmurs, rubs or gallops. Lungs-clear bilaterally, no respiratory distress, no accessory muscle use. Abdomen-normal bowel sounds and soft. No ascites noted. Tender to palpation of right upper and lower quadrant. No CVA tenderness. Extremities- no clubbing, cyanosis, or edema. Rheumatologic-normal range of motion. Results & Data Results & Data Vital Signs (Past 12 Hours) Vital Signs Temp Pulse Pulse Resp BP Pulse Ox O2 Del Method 11/26/24 15:42 37.1 C 90 20 150/75 H 98 Room Air 11/26/24 14:39 89 11/26/24 12:06 36.6 C 86 18 144/79 H 98 Room Air 11/26/24 08:00 36.7 C 89 20 114/63 95 Room Air 11/26/24 07:36 92 H Laboratory Results 1 Micro: 11/24 00:07 BCx: E coli in 2/2 bottles 11/23 23:59 BCx: E coli in 2/2 bottles (R amp, cipro, levo. Otherwise S) 11/23 UCx: E coli Abx: Ceftriaxone 1 g 11/23, 2 g 11/25 - Cefepime 11/24 - 11/25 PG Care Time/CCT Total # of Minutes Spent Total Time Spent with Patient: Total time spent is greater than 50% in coordination of care (as documented) at patient's floor/unit and/or counseling patient: Coding Level of Care Code 28102 SUB INP/OBS CARE 2/35MIN Diagnoses Sepsis A41.9 Pyelonephritis of right kidney N12 Hypomagnesemia E83.42 Nausea & vomiting R11.2 Time Spent (min) 50
[2024-11-26] MEDS: POLYETHYLENE (MIRALAX) 17 GM PACK PO PRN (18:22)
[2024-11-27 13:42] LABS: Hematocrit (blood only) 31.1 % (37.0-47.0); Hemoglobin 10.3 g/dl (12.0-16.0); Mean Corpuscular Hemoglobin 28.3 pg (25.0-34.0); Mean Corpuscular Hgb Conc 33.1 g/dL (32.0-36.0); Mean Corpuscular Volume 85.4 fL (80.0-100.0); Mean Platelet Volume 10.1 fL (9.4-12.4); Platelet Count 224 K/uL (130-400); RDW Coefficient of Variation 12.4 % (11.5-14.5); RDW Standard Deviation 38.5 fL (36.4-46.3); Red Blood Count 3.64 M/uL (4.20-5.40); White Blood Count 8.41 K/ul (4.8-10.8)
[2024-11-27 13:46] LABS: Calcium 8.7 mg/dl (8.6-10.3); Potassium 4.1 mmol/L (3.5-5.1)
[2024-11-27 13:51] LABS: BUN Creatinine Ratio 15.3 (10-20); Creatinine Clr Calc Pharmacy 58.1 ml/min
--- NOTE | 2024-11-27 18:43 | Hospitalist Progress Note ---
Date of Service November 27, 2024 Assessment & Plan (1) Sepsis: Plan: ) Calculus of proximal right ureter: (2) Pyelonephritis of right kidney: (3) E coli bacteremia: Plan Problems: #Obstructing R pelviureteric junction calculus with hydronephrosis and pyelonephritis #E coli bacteremia #Penicillin allergy (rash) (2) Pyelonephritis of right kidney: Plan: 4 yo F with history of nephrolithiasis, T2DM, HLD, parathyroid tumor who presented on 11/23 with R flank pain, N/V, found on CT to have an obstructive R pelviureteric junction calculus with moderate hydronephrosis and enlarged R kidney with severe perinephric fat stranding, s/p R ureteral stent placement 11/24. Complicated by E coli bacteremia in / bottles. On presentation, she was afebrile, HR 113. Labs showed WBC 22.03, lactate 2.5, UA with >50 WBCs. UCx with E coli. Developed fever to 38.2 on 11/24 PM. Leukocytosis has downtrended. She will follow-up with urology as outpatient for definitive stone treatment. Second set of blood cultures have been drawn today we will wait for the results for them to be negative (3) Hypomagnesemia: Plan: Replaced (4) Nausea & vomiting: Plan: Present on admission now resolved Plan Patient is a 74-year-old female with past medical history of kidney stones, type II DM, hyperlipidemia, parathyroid tumor. She presented due to right sided flank pain and associated nausea and vomiting that began today. Patient was found to have a positive UA along with meeting SIRS criteria due to white count of 22.3 and heart rate of 124. She is being admitted for IV antibiotics for sepsis and pyelonephritis. #Sepsis/pyelonephritis - Patient with right flank pain and UA appears infectious with 3+ LE, >50 WBC, 4+ bacteria. Renal function stable. + SIRS: WBC 22.03 with neutrophil predominance, tachycardic 124 - s/p stents for nephrolithiasis - continue ABX - Follow repeat blood cultures Appreciate infectious disease recommendations for discharge #Hypomagnesemia mag 1.4, K+ 3.6. Suspect 2/2 depletion with vomiting. - 2G IV magnesium ordered - Trend BMP and mag #Nausea and vomiting - 2/2 infection above - Zofran as needed - Clear liquid diet, advance as tolerated - Hold nonessential p.o. medications #T2DM - Most recent A1C 7.3%. - hold Metformin with n/v - loose SSI ordered VTE ppx: SCDs, low risk and defer chemical ppx until AP CT resulted (may require surgical management if nephrolithiasis) Dispo: med surg Admission and Anticipated Discharge Date Admission Date: November 24, 2024 Subjective Afebrile WBC downtrended to 8.41 Physical Exam Physical Exam: The patient is tired, alert and oriented 3, well developed and well nourished, normocephalic and atraumatic, in no acute distress. Non-toxic appearing. HEENT- EOMI, mucous membranes dry. Hearing grossly intact. Heart-normal S1 and S2. No murmurs, rubs or gallops. Lungs-clear bilaterally, no respiratory distress, no accessory muscle use. Abdomen-normal bowel sounds and soft. No ascites noted. Rheumatologic-normal range of motion. Results & Data Results & Data Vital Signs (Past 12 Hours) Vital Signs Temp Pulse Pulse Resp BP Pulse Ox O2 Del Method 11/27/24 16:02 36.8 C 83 20 157/75 H 98 Room Air 11/27/24 14:38 85 11/27/24 11:00 36.8 C 82 20 136/77 97 Room Air 11/27/24 07:32 36.7 C 89 20 135/75 95 Room Air Diagnostic Findings White count is 8000 from 22,000 PG Care Time/CCT Total # of Minutes Spent Total Time Spent with Patient: Total time spent is greater than 50% in coordination of care (as documented) at patient's floor/unit and/or counseling patient: Coding Level of Care Code 97260 SUB INP/OBS CARE 2/35MIN Diagnoses Sepsis A41.9 Pyelonephritis of right kidney N12 Hypomagnesemia E83.42 Nausea & vomiting R11.2 Time Spent (min) 35
--- NOTE | 2024-11-28 04:22 | Electrocardiogram Report ---
Test Reason : Blood Pressure : */* mmHG Vent. Rate : 125 BPM Atrial Rate : 125 BPM P-R Int : 176 ms QRS Dur : 74 ms QT Int : 306 ms P-R-T Axes : 37 -13 62 degrees QTcB Int : 441 ms Sinus tachycardia with Premature atrial complexes Minimal voltage criteria for LVH, may be normal variant ( R in aVL ) Septal infarct (cited on or before 22-Aug-2024) Abnormal ECG When compared with ECG of 22-Aug-2024 18:24, Premature atrial complexes are now Present Confirmed by Artie Mcnamara ([id number]) on 11/28/2024 4:22:27 AM Referred By: REFERRED SELF Confirmed By: Artie Mcnamara
--- NOTE | 2024-11-28 04:23 | Electrocardiogram Report ---
Test Reason : Blood Pressure : */* mmHG Vent. Rate : 103 BPM Atrial Rate : * BPM P-R Int : * ms QRS Dur : 68 ms QT Int : 332 ms P-R-T Axes : * -12 29 degrees QTcB Int : 434 ms Atrial fibrillation with rapid ventricular response Septal infarct (cited on or before 22-Aug-2024) Abnormal ECG When compared with ECG of 23-Nov-2024 23:43, Atrial fibrillation has replaced Sinus rhythm Confirmed by Artie Mcnamara ([id number] on 11/28/2024 4:23:07 AM Referred By: REFERRED SELF Confirmed By: Artie Mcnamara
[2024-11-28 09:08] VITALS: RESP 18; TEMP 98.1
--- NOTE | 2024-11-28 11:10 | Discharge Summary ---
Date of Service November 28, 2024 Admission HPI Per Admitting Provider Patient is a 74-year-old female with past medical history of kidney stones, type II DM, hyperlipidemia, parathyroid tumor. She presented due to right sided flank pain and associated nausea and vomiting that began yesterday. Patient was found to have a positive UA along with meeting SIRS criteria due to white count of 22.3 and heart rate of 124. She is being admitted for IV antibiotics for sepsis and pyelonephritis. Patient seen at bedside. She is tired and laying with her eyes closed. She stated that last evening she developed right flank pain that has been worsening since. She also developed nausea and vomiting this morning vomiting approximately 3 times, she denies any hematemesis. She stated the pain radiates from front to back however denies any radiation into her groin. She stated she does have a history of kidney stones, having multiple stones in the 90s however has not had a stone since having her parathyroid removed. She denies any symptoms of cystitis, denies dysuria, hematuria, increase in urinary frequency, increased urinary urgency, difficulty urinating. She has been unable to eat or drink much this evening due to the vomiting with nausea. She does endorse chills this afternoon however improved. She stated she does not get frequent UTIs. She denies any chest pain or shortness of breath. She denies nicotine or alcohol use. She does not use oxygen at baseline. She did not get any of her home medications today due to feeling nauseous. She wishes to be DNR/DNI. Admission Exam (Per Admitting) Constitutional The patient is tired, alert and oriented 3, well developed and well nourished, normocephalic and atraumatic, in no acute distress. Non-toxic appearing. HEENT- EOMI, mucous membranes dry. Hearing grossly intact. Heart-normal S1 and S2. No murmurs, rubs or gallops. Lungs-clear bilaterally, no respiratory distress, no accessory muscle use. Abdomen-normal bowel sounds and soft. No ascites noted. Tender to palpation of right upper and lower quadrant. No CVA tenderness. Extremities- no clubbing, cyanosis, or edema. Rheumatologic-normal range of motion. Discharge Data Consultations 11/24/24 00:22 ED Decision to Admit Stat 11/24/24 06:01 Consult Urology Routine 11/24/24 14:10 Consult Infectious Diseases Routine Procedures Performed Operation Date: 11/24/24 07:00 Actual Procedures p Cystoscopy Right Stent Placement(Right) - Piyush Bo MD Hospital Course (1) Sepsis: ) Calculus of proximal right ureter: (2) Pyelonephritis of right kidney: (3) E coli bacteremia: Plan Problems: #Obstructing R pelviureteric junction calculus with hydronephrosis and pyelonephritis #E coli bacteremia #Penicillin allergy (rash) (2) Pyelonephritis of right kidney: 4 yo F with history of nephrolithiasis, T2DM, HLD, parathyroid tumor who presented on 11/23 with R flank pain, N/V, found on CT to have an obstructive R pelviureteric junction calculus with moderate hydronephrosis and enlarged R kidney with severe perinephric fat stranding, s/p R ureteral stent placement 11/24. Complicated by E coli bacteremia in 4/4 bottles. On presentation, she was afebrile, HR 113. Labs showed WBC 22.03, lactate 2.5, UA with >50 WBCs. UCx with E coli. Developed fever to 38.2 on 5 PM. Leukocytosis has downtrended. She will follow-up with urology as outpatient for definitive stone treatment. Second set of blood cultures have been drawn today we will wait for the results for them to be negative (3) Hypomagnesemia: Replaced (4) Nausea & vomiting: Present on admission now resolved Plan - 1) Calculus of proximal right ureter: (2) Pyelonephritis of right kidney: (3) E coli bacteremia: Plan Problems: #Obstructing R pelviureteric junction calculus with hydronephrosis and pyelonephritis #E coli bacteremia #Penicillin allergy (rash) Micro: 11/24 00:07 BCx: E coli in 2/2 bottles 11/23 23:59 BCx: E coli in 2/2 bottles (R amp, cipro, levo. Otherwise S) 11/23 UCx: E coli Abx: Ceftriaxone 1 g 11/23, 2 g 11/25 - Cefepime 11/24 - 11/25 74 yo F with history of nephrolithiasis, T2DM, HLD, parathyroid tumor who presented on 11/23 with R flank pain, N/V, found on CT to have an obstructive R pelviureteric junction calculus with moderate hydronephrosis and enlarged R kidney with severe perinephric fat stranding, s/p R ureteral stent placement 11/24. Complicated by E coli bacteremia in / bottles. On presentation, she was afebrile, HR 113. Labs showed WBC 22.03, lactate 2.5, UA with >50 WBCs. UCx with E coli. Developed fever to 38.2 on 5/6 PM. Leukocytosis has downtrended. She will follow-up with urology as outpatient for definitive stone treatment. Over the course of her stay in the hospital she responded to IV antibiotics now she is being discharged on cefuroxime 500 mg p.o. every 8 hourly CRP levels have been trending down repeat blood cultures are pending however CRP level is 8.84 from 25.76 and patient has been clinically doing very well we will discharge her on 1 week of oral antibiotics and outpatient follow-up with urology and with her primary care physician Coding Level of Care Code 01700 INP/OBS DISCH >30 MIN Diagnoses Sepsis A41.9 Pyelonephritis of right kidney N12 Hypomagnesemia E83.42 Nausea & vomiting R11.2 Time Spent (min) 40
[2024-11-28 11:20] VITALS: BP 113/66; PULSE 96; O2SAT 96
[2024-11-28] MEDS ORDERED: cefUROXime axetil 500 MG TAB PO SCH (14:00)
== END 2024-11-28 12:11 | disposition home or self-care (01) | DRG 854 ==
LOC: ED 22:07 → EDINP 11-24 01:12 → SUATTDRO 11-24 01:12 → 2S 11-24 03:00